=== PATIENT | female | born 1965 | race Caucasian/White ===

== ENCOUNTER 2020-05-10 20:09 | Emergency (ER) | payer MEDICAID ==
--- NOTE | 2020-05-10 21:39 | ER Document Report ---
ED Medical Screen (RME) - General Chief Complaint: Pelvic Pain Stated Complaint: PELVIC PAIN Time Seen by Provider: 05/10/20 21:31 Notes: 55-year-old female with chief complaint of left lower abdominal/pelvic pain for the past 1.5 weeks, worsening. She also reports some urinary hesitancy and some difficulty with bowel movements (constipation). She denies nausea, vomiting, fever/chills. She denies any abdominal surgeries except for tubal ligation. She states that she is having vaginal bleeding although she is not completely certain if this is bleeding with urination or vaginal bleeding. She also states that she is out of her blood pressure medication and has been unable to follow- up, she denies headache chest pain. Physical Exam - Vital signs Vitals: Temp Pulse Resp BP Pulse Ox 98.0 F 114 H 18 223/114 H 98 05/10/20 20:15 05/10/20 20:15 05/10/20 20:15 05/10/20 20:15 05/10/20 20:15 - Abdominal Tenderness: Tender - Tender in the suprapubic to left lower quadrant areas, exam limited by sitting position Course - Re-evaluation Re-evalutation: Patient seems tender in the suprapubic to left lower quadrant areas, difficulty reevaluate in triage. Discussed with patient, will perform straight catheter to evaluate if patient is having hematuria or vaginal bleeding since patient is unsure. I have greeted and performed a rapid initial assessment of this patient. A comprehensive ED assessment and evaluation of the patient, analysis of test results and completion of the medical decision making process will be conducted by additional ED providers. - Vital Signs Vital signs: Temp Pulse Resp BP Pulse Ox 98.0 F 114 H 18 223/114 H 98 05/10/20 20:15 05/10/20 20:15 05/10/20 20:15 05/10/20 20:15 05/10/20 20:15
--- NOTE | 2020-05-10 22:28 | RADIOLOGY REPORT (SQ) ---
EXAM DESCRIPTION: US PELVIS TRANSVAGINAL COMPLETED DATE/TME: 05/10/2020 21:39 CLINICAL HISTORY: 55 years, Female, pelvic pain (left side), vaginal bleeding COMPARISON: None. TECHNIQUE: LIMITATIONS: None. FINDINGS: The uterus measures 9.1 x 5.3 x 4.6 cm in overall size. There is a 3.2 cm fibroid in the lower uterine segment. The endometrial stripe measures 11 mm. The ovaries are unremarkable, and contain follicles bilaterally. Blood flow was demonstrated in both ovaries with Doppler. IMPRESSION: Lower uterine segment fibroid. copyright 2010 [employer]- All Rights Reserved
[2020-05-10 22:59] LABS: ABSOLUTE BASOPHILS # (AUTO) 0.2 10^3/uL (0.0-0.2); ABSOLUTE EOSINOPHILS # (AUTO) 0.3 10^3/uL (0.0-0.6); ABSOLUTE LYMPHOCYTES (AUTO) 3.3 10^3/uL (0.5-4.7); ABSOLUTE MONOCYTES (AUTO) 1.1 10^3/uL (0.1-1.4); ABSOLUTE NEUT (AUTO) 8.3 10^3/uL (1.7-8.2); BASOPHILS % (AUTO) 1.3 % (0-2); HEMATOCRIT 36.4 % (36.0-47.0); HEMOGLOBIN 11.7 g/dL (12.0-15.5); LYMPHOCYTES % (AUTO) 25.5 % (13-45); MEAN CORPUSCULAR HEMOGLOBIN 24.3 pg (27.0-33.4); MEAN CORPUSCULAR HGB CONC 32.1 g/dL (32.0-36.0); MEAN CORPUSCULAR VOLUME 76 fl (80-97); MONOCYTES % (AUTO) 8.2 % (3-13); PLATELET COUNT 476 10^3/uL (150-450); RED CELL DISTRIBUTION WIDTH 20.3 % (11.5-14.0); TOTAL CELLS COUNTED % (AUTO) 100 %; WHITE BLOOD COUNT 13.1 10^3/uL (4.0-10.5)
[2020-05-10 23:12] LABS: ALBUMIN 3.9 g/dL (3.5-5.0); ALKALINE PHOSPHATASE 87 U/L (38-126); ANION GAP 5 (5-19); ASPARTATE AMINO TRANSFERASE 17 U/L (14-36); BILIRUBIN,TOTAL 0.2 mg/dL (0.2-1.3); BLOOD UREA NITROGEN 13 mg/dL (7-20); CALCIUM 9.3 mg/dL (8.4-10.2); CARBON DIOXIDE 28 mmol/L (22-30); CHLORIDE 104 mmol/L (98-107); GLUCOSE 125 mg/dL (75-110); POTASSIUM 3.9 mmol/L (3.6-5.0); TOTAL PROTEIN 7.2 g/dL (6.3-8.2)
--- NOTE | 2020-05-11 01:09 | ER Document Report ---
ED General - General Chief Complaint: Lower Abdominal Pain Stated Complaint: PELVIC PAIN Time Seen by Provider: 05/10/20 21:31 Primary Care Provider: [facility] [Provider Group] - Follow up in 3-5 days BRAD CALL MD [COMMUNITY BASED STAFF] - Follow up in 3-5 days Notes: Patient is a 55-year-old female with chief complaint of left lower abdominal/pelvic pain for the past 1.5 weeks, worsening. She also reports some urinary hesitancy and some difficulty with bowel movements (constipation). She denies nausea, vomiting, fever/chills. She denies any abdominal surgeries except for tubal ligation. She states that she is having vaginal bleeding although she is not completely certain if this is bleeding with urination or vaginal bleeding. She denies vaginal discharge or sexual activity. She also states that she is out of her blood pressure medication and has been unable to follow-up, she denies headache chest pain. - Related Data Allergies/Adverse Reactions: No Known Allergies Allergy (Verified 05/10/20 21:44) Home Medications: mvi. low dose asa Past Medical History - General Information source: Patient - Social History Smoking Status: Current Every Day Smoker Frequency of alcohol use: Occasional Drug Abuse: None Lives with: Family Family History: Reviewed & Not Pertinent Patient has homicidal ideation: No - Past Medical History Cardiac Medical History: Reports: Hx Hypertension - Immunizations Hx Diphtheria, Pertussis, Tetanus Vaccination: Yes Review of Systems - Review of Systems Constitutional: No symptoms reported EENT: No symptoms reported Cardiovascular: No symptoms reported Respiratory: No symptoms reported Gastrointestinal: See HPI Genitourinary: See HPI Female Genitourinary: See HPI Musculoskeletal: No symptoms reported Skin: No symptoms reported Hematologic/Lymphatic: No symptoms reported Neurological/Psychological: No symptoms reported Physical Exam - Vital signs Vitals: Temp Pulse Resp BP Pulse Ox 98.0 F 114 H 18 223/114 H 98 05/10/20 20:15 05/10/20 20:15 05/10/20 20:15 05/10/20 20:15 05/10/20 20:15 - Notes Notes: GENERAL: Alert, interacts well. No acute distress. HEAD: Normocephalic, atraumatic. EYES: Pupils equal, round, and reactive to light. Extraocular movements intact. ENT: Oral mucosa moist, tongue midline. Oropharynx unremarkable. Airway patent. NECK: Full range of motion. Supple. Trachea midline. No lymphadenopathy. LUNGS: Clear to auscultation bilaterally, no wheezes, rales, or rhonchi. No respiratory distress. Non-tender chest wall. HEART: Regular rate and rhythm. No murmur ABDOMEN: Soft, non-tender. Non-distended. EXTREMITIES: Moves all 4 extremities spontaneously. No edema, normal radial and dorsalis pedis pulses bilaterally. No cyanosis. BACK: no cervical, thoracic, lumbar midline tenderness. No saddle anesthesia, normal distal neurovascular exam. Moves all extremities in full range of motion. NEUROLOGICAL: Alert and oriented x3. Normal speech. Cranial nerves II through XII grossly intact. Strength 5/5 in all extremities. PSYCH: Normal affect, normal mood. SKIN: Warm, dry, normal turgor. No rashes or lesions noted. Course - Re-evaluation Re-evalutation: Based on asking patient a variety of questions it seems that she is on lisinopril 20 mg and HCTZ 25 mg for her blood pressure but she is out of these. She states that the "water pill" makes her potassium go too low and she gets terrible cramps, she states she refuses to take this anymore. She does want to get back on the lisinopril 20 mg and she will have adjustments from there, she states she needs primary care referral, she is new to the area but she did just get insurance. Patient does not have chest pain, shortness of breath, or headache. On exam patient's abdomen is actually quite benign, there is no noted tenderness, there is no guarding. She does not have a fever. She has mild leukocytosis but this is nonspecific given her abdominal exam. Chemistry is unremarkable. Urinalysis does show infection. Transvaginal ultrasound does show uterine fibroid, I suspect this is the cause of patient's intermittent pain and vaginal bleeding. I discussed at length with patient. She will be treated for UTI, she will follow-up with [facility], I stressed the importance of this because of her vaginal bleeding after the age of 36 and the need for her to have the biopsy for any abnormal cells. Patient does state that she will follow-up, take medications, discussed return precautions, patient states understanding and agreement. Stable, smiling, well-appearing at time of discharge. - Vital Signs Vital signs: Temp Pulse Resp BP Pulse Ox 98.0 F 80 16 189/94 H 98 05/11/20 03:29 05/11/20 03:29 05/11/20 03:29 05/11/20 03:29 05/11/20 03:29 - Laboratory Result Diagrams: 05/10/20 22:40 05/10/20 22:40 Laboratory results interpreted by me: 05/10/20 05/10/20 05/11/20 22:40 22:40 00:10 WBC 13.1 H Hgb 11.7 L MCV 76 L MCH 24.3 L RDW 20.3 H Plt Count 476 H Absolute Neuts (auto) 8.3 H Est GFR (MDRD) Non-Af 51 L Glucose 125 H Urine Blood SMALL H Ur Leukocyte Esterase SMALL H Discharge - Discharge Clinical Impression: Lower abdominal pain, Vaginal bleeding, Uncontrolled hypertension Condition: Stable Disposition: HOME, SELF-CARE Additional Instructions: You have a fibroid in your uterus, this is most likely causing pain in the vaginal bleeding. This needs to be evaluated and treated by [facility]. It is very important that you perform this follow-up, because of the vaginal bleeding you may need a biopsy to rule out any abnormal cells which could develop into cancer with time. Call the listed referral tomorrow to set up a follow-up appointment. Your blood pressure is very elevated tonight. It is important that you start taking her blood pressure medication prescribed and that you follow-up with [facility] closely to have additional treatment for this. Call the listed referral for primary care as well. You have a urinary tract infection, take the antibiotic as prescribed to completion. Return if you worsen including vomiting, fever, severe headache, chest pain, very heavy bleeding, dizziness, passing out, or any other concerning symptoms. Prescriptions: Cephalexin Monohydrate [Keflex 500 mg Capsule] 500 mg PO BID 5 Days #10 capsule Lisinopril 20 mg PO DAILY #30 tablet Referrals: BRAD CALL MD [COMMUNITY BASED STAFF] - Follow up in 3-5 days [facility] [[facility] - Follow up in 3-5 days
[2020-05-11] MEDS ORDERED: LORAZEPAM 1 MG TABLET PO ONE (01:36)
[2020-05-11] MEDS ORDERED: LISINOPRIL 10 MG TABLET PO ONE (01:36)
[2020-05-11 01:52] LABS: APPEARANCE,URINE SLIGHTLY-CLOUDY; BILIRUBIN,URINE NEGATIVE (NEGATIVE); COLOR,URINE YELLOW; GLUCOSE, URINE NEGATIVE (NEGATIVE); KETONES,URINE NEGATIVE (NEGATIVE); LEUKOCYTE ESTERASE,URINE SMALL (NEGATIVE); NITRITE,URINE NEGATIVE (NEGATIVE); PROTEIN,URINE NEGATIVE (NEGATIVE); URINE SPECIFIC GRAVITY 1.012; UROBILINOGEN,URINE NEGATIVE mg/dL (<2.0)
[2020-05-11] MEDS ORDERED: CEPHALEXIN 500 MG CAPSULE PO ONE (02:18)
[2020-05-11 03:36] VITALS: BP 189/94
== END 2020-05-11 03:35 | disposition home or self-care (01) ==
LOC: ER 20:09
DX: N39.0 Urinary tract infection, site not specified (principal); D25.9 Leiomyoma of uterus, unspecified; K59.00 Constipation, unspecified; I10 Essential (primary) hypertension; R10.2 Pelvic and perineal pain; N93.9 Abnormal uterine and vaginal bleeding, unspecified; R39.11 Hesitancy of micturition; F17.200 Nicotine dependence, unspecified, uncomplicated; Z98.51 Tubal ligation status; Z79.899 Other long term (current) drug therapy; Z79.82 Long term (current) use of aspirin
CPT/HCPCS: 99284; 36415; 85025; 80053; 81001; 76830; 93976; J3490

== ENCOUNTER 2020-08-25 01:49 | Inpatient (IN) | payer MEDICAID ==
[2020-08-25 02:28] LABS: ABSOLUTE BASOPHILS # (AUTO) 0.1 10^3/uL (0.0-0.2); ABSOLUTE EOSINOPHILS # (AUTO) 0.3 10^3/uL (0.0-0.6); ABSOLUTE LYMPHOCYTES (AUTO) 2.3 10^3/uL (0.5-4.7); ABSOLUTE MONOCYTES (AUTO) 0.9 10^3/uL (0.1-1.4); ABSOLUTE NEUT (AUTO) 8.5 10^3/uL (1.7-8.2); BASOPHILS % (AUTO) 0.6 % (0-2); EOSINOPHILS % (AUTO) 2.6 % (0-6); HEMATOCRIT 37.3 % (36.0-47.0); HEMOGLOBIN 12.1 g/dL (12.0-15.5); LYMPHOCYTES % (AUTO) 19.1 % (13-45); MEAN CORPUSCULAR HEMOGLOBIN 24.8 pg (27.0-33.4); MEAN CORPUSCULAR HGB CONC 32.4 g/dL (32.0-36.0); MEAN CORPUSCULAR VOLUME 76 fl (80-97); MONOCYTES % (AUTO) 7.7 % (3-13); PLATELET COUNT 429 10^3/uL (150-450); RED BLOOD COUNT 4.89 10^6/uL (3.72-5.28); RED CELL DISTRIBUTION WIDTH 19.3 % (11.5-14.0); TOTAL CELLS COUNTED % (AUTO) 100 %; WHITE BLOOD COUNT 12.1 10^3/uL (4.0-10.5)
[2020-08-25 02:37] LABS: ALKALINE PHOSPHATASE 108 U/L (38-126); ANION GAP 8 (5-19); ASPARTATE AMINO TRANSFERASE 22 U/L (14-36); BILIRUBIN,DIRECT 0.3 mg/dL (0.0-0.4); BILIRUBIN,TOTAL 0.8 mg/dL (0.2-1.3); BLOOD UREA NITROGEN 13 mg/dL (7-20); CALCIUM 9.4 mg/dL (8.4-10.2); CARBON DIOXIDE 25 mmol/L (22-30); CHLORIDE 106 mmol/L (98-107); GLUCOSE 122 mg/dL (75-110); NEONATAL BILIRUBIN RESULT 0.5 mg/dL (0.1-1.1); TOTAL PROTEIN 7.3 g/dL (6.3-8.2)
--- NOTE | 2020-08-25 06:38 | RADIOLOGY REPORT (SQ) ---
EXAM DESCRIPTION: XR CHEST 1 VIEW COMPLETED DATE/TME: 08/25/2020 02:10 CLINICAL HISTORY: 55 years, Female, sob,cough COMPARISON: None. NUMBER OF VIEWS: 1 TECHNIQUE: Portable chest LIMITATIONS: None. FINDINGS: The heart size is normal. No pneumothorax. Interstitial opacities bilaterally consistent with pneumonitis IMPRESSION: Bilateral pneumonitis copyright 2011 [employer]- All Rights Reserved
[2020-08-25] MEDS ORDERED: LABETALOL HCL INJ 20 MG/4 ML DISP.SYRIN IV ONE (06:42)
[2020-08-25 07:10] LABS: TROPONIN I 0.04 ng/mL
[2020-08-25] MEDS ORDERED: FUROSEMIDE INJ/PF 40 MG/4 ML SDV IV ONE (07:24)
[2020-08-25] MEDS ORDERED: NITROGLYCERIN 2% OINTMENT 1 GM PACKET TP ONE (07:25)
[2020-08-25] MEDS ORDERED: MORPHINE SULFATE 10 MG/ML INJ IV ONE (07:25)
[2020-08-25] MEDS ORDERED: ONDANSETRON HCL INJ/PF 4 MG/2 ML SDV IV ONE (07:26)
--- NOTE | 2020-08-25 08:27 | EKG REPORT ---
SEVERITY:- ABNORMAL ECG - SINUS TACHYCARDIA LEFT BUNDLE BRANCH BLOCK : Confirmed by: Zack Joseph MD 25-Aug-2020 08:26:13
[2020-08-25] MEDS ORDERED: ASPIRIN 81 MG TABLET, CHEWABLE PO ONE (10:53)
--- NOTE | 2020-08-25 12:18 | EKG REPORT ---
SEVERITY:- ABNORMAL ECG - SINUS RHYTHM LEFT BUNDLE BRANCH BLOCK : Confirmed by: Zack Joseph MD 25-Aug-2020 12:17:03
--- NOTE | 2020-08-25 12:25 | ER Document Report ---
Entered by ALBERTO ESQUEDA SCRIBE 08/25/20 0619 Acting as scribe for:LEXI RAMOS MD ED Respiratory Problem - General Chief Complaint: Shortness Of Breath Stated Complaint: SHORTNESS OF BREATH,COUGHING Time Seen by Provider: 08/25/20 06:05 Mode of Arrival: Ambulatory Information source: Patient Notes: This 55 year old female patient with a history of hypertension presents to the ED today with complaints of shortness of breath for the past x1 week. Patient reports associated episodic chest tightness, mild nonproductive cough, and leg swelling. She states that her symptoms progressively worsened and that she can't lay down flat without becoming short of breath, so she decided to come to the ED for evaluation. Chest tightness is a 1/5 in severity at this time. She mentions that she ran out of her blood pressure medications x1 month ago and doesn't know the dose or name of the medication. Patient is a current every day smoker. She does not have a PCP. - Related Data Allergies/Adverse Reactions: No Known Allergies Allergy (Verified 05/10/20 21:44) Past Medical History - General Information source: Patient, [facility] Records - Social History Smoking Status: Current Every Day Smoker Chew tobacco use (# tins/day): No Smoking Education Provided: No Frequency of alcohol use: None Drug Abuse: None Family History: Reviewed & Not Pertinent, CAD, Hypertension Patient has suicidal ideation: No Patient has homicidal ideation: No - Past Medical History Cardiac Medical History: Reports: Hx Hypertension Psychiatric Medical History: Reports: Hx Anxiety, Hx Depression Past Surgical History: Reports: Hx Tubal Ligation - Immunizations Hx Diphtheria, Pertussis, Tetanus Vaccination: Yes Review of Systems - Review of Systems Constitutional: No symptoms reported EENT: No symptoms reported Cardiovascular: See HPI, Chest pain - tightness, Orthopnea Respiratory: See HPI, Cough, Short of breath. denies: Sputum Gastrointestinal: No symptoms reported Genitourinary: No symptoms reported Female Genitourinary: No symptoms reported Musculoskeletal: See HPI, Leg swelling Skin: No symptoms reported Hematologic/Lymphatic: No symptoms reported Neurological/Psychological: No symptoms reported -: Yes All other systems reviewed and negative Physical Exam - Vital signs Vitals: Temp Pulse Resp BP Pulse Ox 97.4 F 104 H 24 H 163/108 H 98 08/25/20 02:06 08/25/20 02:06 08/25/20 02:06 08/25/20 02:06 08/25/20 02:06 - General General appearance: Alert In distress: None - HEENT Head: Normocephalic, Atraumatic Eyes: Normal Pupils: PERRL Mouth/Lips: Other - Poor dentition - Respiratory Respiratory status: No respiratory distress Chest status: Nontender Breath sounds: Decreased air movement - Diminished breath sounds in the bases bilaterally Chest palpation: Normal - Cardiovascular Rhythm: Regular Heart sounds: Normal auscultation Murmur: No Friction rub: No Gallop: None auscultated - Abdominal Inspection: Normal Distension: No distension Bowel sounds: Normal Tenderness: Nontender Organomegaly: No organomegaly - Back Back: Normal, Nontender - Extremities General upper extremity: Normal inspection General lower extremity: Edema - +1 edema to bilateral lower extremities - Neurological Neuro grossly intact: Yes Orientation: AAOx4 Victoria Coma Scale Eye Opening: Spontaneous Abilio Coma Scale Verbal: Oriented Victoria Coma Scale Motor: Obeys Commands Victoria Coma Scale Total: 15 - Psychological Associated symptoms: Normal affect, Normal mood - Skin Skin Temperature: Warm Skin Moisture: Dry Skin Color: Normal Course - Re-evaluation Re-evalutation: 08/25/20 14:45 Patient resting comfortably states she feels better after diuresing. - Vital Signs Vital signs: Temp Pulse Resp BP Pulse Ox 98.5 F 104 H 16 137/88 H 98 08/25/20 10:30 08/25/20 02:06 08/25/20 10:30 08/25/20 10:30 08/25/20 10:30 08/25/20 14:45 mild sinus tachycardia at 104. - Laboratory Result Diagrams: 08/25/20 02:15 08/25/20 02:15 Laboratory results interpreted by me: 08/25/20 08/25/20 08/25/20 02:15 02:15 02:15 WBC 12.1 H MCV 76 L MCH 24.8 L RDW 19.3 H Absolute Neuts (auto) 8.5 H Glucose 122 H NT-Pro-B Natriuret Pep 2270 H 08/25/20 14:46 White blood cell count 12.1 BNP of 2270 glucose 122. - Diagnostic Test Radiology reviewed: Image reviewed, Reports reviewed Radiology results interpreted by me: 08/25/20 14:47 Chest X-Ray 08/25/20 02:10 IMPRESSION: Bilateral pneumonitis copyright 2011 [employer]- All Rights Reserved Chest x-ray read by radiologist shows bilateral pneumonitis. My evaluation of chest x-ray shows cardiomegaly and bibasilar infiltrates noted I was concerned for congestive heart failure. - EKG Interpretation by Me Additional EKG results interpreted by me: 08/25/20 14:58 Twelve-lead EKG shows a sinus tachycardia rate of 107 with a left bundle branch block. Hour interval within normal range QRS widening with a left bundle branch block QT interval prolonged. Left axis deviation. Left bundle branch block with reciprocal changes and ST elevations consistent with re-pole changes of left bundle branch block no acute STEMI noted. Patient has no prior EKG to alert us as to how long patient has had a left bundle branch block. - Consults Dr. Rivero, Home Health Rn Time consulted: 11:37 Reason for consultation: 08/25/20 11:39 New onset CHF, LBBB, Troponin leak Consulted provider: will see as inpatient Dr. Joseph, Home Health Rn-EKG Readings Time consulted: 12:00 Reason for consultation: 08/25/20 12:[address] Flores, Hospitalist Time consulted: 12:15 Dr. Estevez, Hospitalist Time consulted: 12:20 Reason for consultation: 08/25/20 12:22 Admission for new onset CHF Consulted provider: will see as inpatient Discharge - Discharge Clinical Impression: CHF (congestive heart failure), Accelerated essential hypertension, Left bundle branch block, Elevated troponin Condition: Fair Disposition: ADMITTED INPATIENT Admitting Provider: Herb (Hospitalist) Unit Admitted: IM I personally performed the services described in the documentation, reviewed and edited the documentation which was dictated to the scribe in my presence, and it accurately records my words and actions.
[2020-08-25] MEDS ORDERED: ACETAMINOPHEN 325 MG TABLET PO PRN (14:19)
[2020-08-25] MEDS ORDERED: OXYCODONE-ACETAMINOPHEN 5-325 MG TABLET PO PRN (14:19)
[2020-08-25] MEDS ORDERED: ZOLPIDEM TARTRATE 5 MG TABLET PO PRN (14:19)
[2020-08-25] MEDS ORDERED: IPRATROPIUM/ALBUTEROL 0.5-2.5 MG/3 ML AMPUL NEB PRN (14:19)
[2020-08-25] MEDS ORDERED: NITROGLYCERIN 0.4 MG/TAB 25 TAB/BOTTLE SL PRN (14:29)
--- NOTE | 2020-08-25 14:51 | PDOC H&P ---
History of Present Illness Admission Date/PCP: 08/25/20 12:51 Patient complains of: Patient presented to the emergency room with complaints of difficulty breathing and shortness of breath. She was found to have a blood pressure 177/109 on initial presentation. History of Present Illness: MICHELE GONZALEZ is a 55 year old female Patient presented to the emergency room with complaints of difficulty breathing and shortness of breath. She was found to have a blood pressure 177/109 on initial presentation. Patient admits to medical noncompliance. She says she dunn s been able to get her medications. She was not hypoxic although she was slightly intermittently tachypneic. Chest x-ray did show bilateral infiltrates and BNP slightly elevated at 2270. Patient's troponin was also found to be slightly elevated at 0.040 and 0.042. White count is 12.1 Chest x-ray is consistent with bilateral pneumonitis however patient is not hypoxic and she did improve with Lasix. I suspect her chest x-ray findings likely due to pulmonary congestion Past Medical History Cardiac Medical History: Reports: Hyperlipidema, Hypertension Psychiatric Medical History: Reports: Depression Past Surgical History Past Surgical History: Reports: Tubal Ligation Social History Information Source: Patient Smoking Status: Current Every Day Smoker Electronic Cigarette use?: No - Advance Directive Resuscitation Status: Full Code Family History Family History: Reviewed & Not Pertinent, CAD, Hypertension Parental Family History Reviewed: Yes Children Family History Reviewed: Yes Sibling(s) Family History Reviewed.: Yes Medication/Allergy Home Medications: Cephalexin Monohydrate [Keflex 500 mg Capsule] 500 mg PO BID 5 Days #10 capsule 05/11/20 Lisinopril 20 mg PO DAILY #30 tablet 05/11/20 Allergies/Adverse Reactions: No Known Allergies Allergy (Verified 05/10/20 21:44) Review of Systems Constitutional: ABSENT: chills, fever(s), headache(s), weight gain, weight loss Eyes: ABSENT: visual disturbances Ears: ABSENT: hearing changes Cardiovascular: PRESENT: chest pain, dyspnea on exertion. ABSENT: edema, orthropnea, palpitations Respiratory: ABSENT: cough, hemoptysis Gastrointestinal: ABSENT: abdominal pain, constipation, diarrhea, hematemesis, hematochezia, nausea, vomiting Genitourinary: ABSENT: dysuria, hematuria Musculoskeletal: ABSENT: joint swelling Integumentary: ABSENT: rash, wounds Neurological: ABSENT: abnormal gait, abnormal speech, confusion, dizziness, focal weakness, syncope Psychiatric: ABSENT: anxiety, depression, homidical ideation, suicidal ideation Endocrine: ABSENT: cold intolerance, heat intolerance, polydipsia, polyuria Hematologic/Lymphatic: ABSENT: easy bleeding, easy bruising Physical Exam Vital Signs: Temp Pulse Resp BP Pulse Ox 98.5 F 104 H 16 137/88 H 98 08/25/20 10:30 08/25/20 02:06 08/25/20 10:30 08/25/20 10:30 08/25/20 10:30 Intake & Output 08/24/20 08/25/20 08/26/20 06:59 06:59 06:59 Weight 93.7 kg General appearance: PRESENT: no acute distress, well-developed, well-nourished Head exam: PRESENT: atraumatic Eye exam: PRESENT: conjunctiva pink, EOMI, PERRLA. ABSENT: scleral icterus Ear exam: PRESENT: normal external ear exam Mouth exam: PRESENT: moist, tongue midline Teeth exam: PRESENT: poor dentation Neck exam: ABSENT: carotid bruit, JVD, lymphadenopathy, thyromegaly Respiratory exam: PRESENT: crackles. ABSENT: rales, rhonchi, wheezes Cardiovascular exam: PRESENT: RRR, +S1, +S2. ABSENT: diastolic murmur, rubs, systolic murmur Pulses: PRESENT: normal dorsalis pedis pul Vascular exam: PRESENT: normal capillary refill GI/Abdominal exam: PRESENT: normal bowel sounds, soft. ABSENT: distended, guarding, mass, organolmegaly, rebound, tenderness Rectal exam: PRESENT: deferred Extremities exam: PRESENT: full ROM, +1 edema. ABSENT: calf tenderness, clubbing, pedal edema Neurological exam: PRESENT: alert, awake, oriented to person, oriented to place, oriented to time, oriented to situation, CN II-XII grossly intact. ABSENT: motor sensory deficit Psychiatric exam: PRESENT: appropriate affect, normal mood. ABSENT: homicidal ideation, suicidal ideation Skin exam: PRESENT: dry, intact, warm. ABSENT: cyanosis, rash Results Laboratory Results: 08/25/20 02:15 08/25/20 02:15 08/25/20 08/25/20 02:15 02:15 WBC 12.1 H RBC 4.89 Hgb 12.1 Hct 37.3 MCV 76 L MCH 24.8 L MCHC 32.4 RDW 19.3 H Plt Count 429 Seg Neutrophils % 70.0 Sodium 138.9 Potassium 4.0 Chloride 106 Carbon Dioxide 25 Anion Gap 8 BUN 13 Creatinine 0.93 Est GFR ( Amer) > 60 Glucose 122 H Calcium 9.4 Total Bilirubin 0.8 AST 22 Alkaline Phosphatase 108 Total Protein 7.3 Albumin 4.0 08/25/20 08/25/20 02:15 10:03 Troponin I 0.040 0.042 NT-Pro-B Natriuret Pep 2270 H EKG Comments: EKG shows a left bundle branch block. Unfortunately there is no prior old EKG for comparison Impressions: Chest X-Ray 08/25/20 02:10 IMPRESSION: Bilateral pneumonitis copyright 2011 [employer]- All Rights Reserved Assessment and Plan - Diagnosis (1) Hypertensive emergency Is this a current diagnosis for this admission?: Yes Plan: Treated with Labetalol and Lasix and Nitropaste in ED and her blood pressure rapidly improved. Patient's breathing also improved suggesting that she probab ly has pulmonary vascular congestion from hypertensive emergency She will be placed on Metoprolol. It appears she was on lisinopril as outpatient. (2) Elevated troponin I level Is this a current diagnosis for this admission?: Yes Plan: This is likely troponin leak secondary to her hypertensive emergency and pulmonary vascular congestion. Her level is flat at 0.4. A repeat troponin will be obtained. Echocardiogram will be scheduled. She does have a left bundle branch block and it is unknown if this is old although I suspect so. Should be monitored on telemetry. We will repeat an EKG in a.m. and further consultations will be obtained as clinically indicated (3) Bilateral pulmonary infiltrates on chest x-ray Is this a current diagnosis for this admission?: Yes Plan: Bilateral infiltrates on chest x-ray likely secondary related to pulmonary vascular congestion. Patient does not seem to have risk factors or symptomatology strongly suggestive of COVID however a COVID test will be obtained to rule out COVID and patient will be placed on appropriate isolation protocols. I will put Zithromax. At this point I see no need for any steroids or other cocktails for COVID as she is not hypoxic. Continue to monitor and adjust treatment as needed (4) CHF (congestive heart failure) Qualifiers: Heart failure chronicity: unspecified Is this a current diagnosis for this admission?: Yes Plan: This is a suspected diagnosis. Patient gives no prior history of CHF. Will obtain echocardiogram. (5) Left bundle branch block Is this a current diagnosis for this admission?: Yes Plan: Unknown if this is old or new. Will obtain follow-up EKG in a.m. with appropriate follow-up consultations as indicated - Time Time Spent with patient: 25-34 minutes Smoking Cessation Education: 3 to 10 minutes Medications reviewed and adjusted accordingly: Yes Anticipated Discharge Disposition: Home, Self Care Anticipated Discharge Timeframe: within 48 hours
[2020-08-25] MEDS: AZITHROMYCIN 500 MG in DEXTROSE 5%-WATER 250 ML IV SCH (16:30)
[2020-08-25] MEDS: ONDANSETRON HCL INJ/PF 4 MG/2 ML SDV IV PRN (17:49)
[2020-08-25] MEDS: FUROSEMIDE INJ/PF 40 MG/4 ML SDV IV SCH (21:30)
[2020-08-25] MEDS: METOPROLOL SUCCINATE 25 MG TAB.SR.24H PO SCH (21:30)
[2020-08-26] MEDS: PANTOPRAZOLE SODIUM 40 MG TABLET.DR PO SCH (05:41)
[2020-08-26 06:09] LABS: ABSOLUTE BASOPHILS # (AUTO) 0.1 10^3/uL (0.0-0.2); ABSOLUTE EOSINOPHILS # (AUTO) 0.3 10^3/uL (0.0-0.6); ABSOLUTE LYMPHOCYTES (AUTO) 1.9 10^3/uL (0.5-4.7); ABSOLUTE MONOCYTES (AUTO) 0.7 10^3/uL (0.1-1.4); ABSOLUTE NEUT (AUTO) 7.1 10^3/uL (1.7-8.2); BASOPHILS % (AUTO) 1.3 % (0-2); EOSINOPHILS % (AUTO) 2.8 % (0-6); HEMATOCRIT 35.2 % (36.0-47.0); HEMOGLOBIN 11.2 g/dL (12.0-15.5); MEAN CORPUSCULAR HEMOGLOBIN 24.5 pg (27.0-33.4); MEAN CORPUSCULAR HGB CONC 31.7 g/dL (32.0-36.0); MEAN CORPUSCULAR VOLUME 77 fl (80-97); MONOCYTES % (AUTO) 7.3 % (3-13); PLATELET COUNT 364 10^3/uL (150-450); RED BLOOD COUNT 4.57 10^6/uL (3.72-5.28); RED CELL DISTRIBUTION WIDTH 19.4 % (11.5-14.0); SEGMENTED NEUTROPHILS % (AUTO) 69.6 % (42-78); TOTAL CELLS COUNTED % (AUTO) 100 %; WHITE BLOOD COUNT 10.2 10^3/uL (4.0-10.5)
[2020-08-26 06:26] LABS: ANION GAP 7 (5-19); BLOOD UREA NITROGEN 14 mg/dL (7-20); CALCIUM 8.5 mg/dL (8.4-10.2); CARBON DIOXIDE 25 mmol/L (22-30); CHLORIDE 107 mmol/L (98-107); GLUCOSE 99 mg/dL (75-110)
--- NOTE | 2020-08-26 08:48 | EKG REPORT ---
SEVERITY:- ABNORMAL ECG - SINUS RHYTHM LEFT BUNDLE BRANCH BLOCK : Confirmed by: Zack Joseph MD 26-Aug-2020 08:47:23
[2020-08-26] MEDS: ASPIRIN 81 MG TABLET, CHEWABLE PO SCH (09:04)
[2020-08-26] MEDS: METOPROLOL SUCCINATE 25 MG TAB.SR.24H PO SCH ×2 (09:04→21:56)
[2020-08-26] MEDS: DOCUSATE SODIUM 100 MG CAPSULE PO SCH (09:04)
[2020-08-26] MEDS: ENOXAPARIN SODIUM INJ 40 MG/0.4 ML DISP.SYRIN SUBCUT SCH (09:04)
[2020-08-26] MEDS: FUROSEMIDE INJ/PF 40 MG/4 ML SDV IV SCH ×2 (09:04→21:56)
[2020-08-26] MEDS: AZITHROMYCIN 500 MG in DEXTROSE 5%-WATER 250 ML IV SCH (09:05)
--- NOTE | 2020-08-26 12:27 | PDOC PROGRESS REPORT ---
Subjective Progress Note for:: 08/26/20 Reason For Visit: HYPERTENSIVE URGENCY, R/O COVID,ELEVATED TROPONIN Physical Exam Vital Signs: Temp Pulse Resp BP Pulse Ox 98.1 F 86 16 130/73 H 98 08/26/20 07:52 08/26/20 07:25 08/26/20 07:25 08/26/20 07:25 08/26/20 07:25 Intake & Output 08/25/20 08/26/20 08/27/20 06:59 06:59 06:59 Intake Total 1700 250 Output Total 1400 Balance 300 250 Weight 93.7 kg 94.6 kg General appearance: PRESENT: no acute distress Head exam: PRESENT: atraumatic, normocephalic Eye exam: PRESENT: conjunctiva pink, EOMI, PERRLA. ABSENT: scleral icterus Ear exam: PRESENT: normal external ear exam Mouth exam: PRESENT: moist, tongue midline Teeth exam: PRESENT: poor dentation Neck exam: ABSENT: carotid bruit, JVD, lymphadenopathy, thyromegaly Respiratory exam: PRESENT: decreased breath sounds, rhonchi - few. ABSENT: rales, wheezes Cardiovascular exam: PRESENT: RRR, +S1, +S2. ABSENT: diastolic murmur, rubs, systolic murmur Pulses: PRESENT: normal dorsalis pedis pul Vascular exam: PRESENT: normal capillary refill GI/Abdominal exam: PRESENT: normal bowel sounds, soft. ABSENT: distended, guarding, mass, organolmegaly, rebound, tenderness Rectal exam: PRESENT: deferred Extremities exam: PRESENT: full ROM. ABSENT: calf tenderness, clubbing, pedal edema Neurological exam: PRESENT: alert, awake, oriented to person, oriented to place, oriented to time. ABSENT: motor sensory deficit Psychiatric exam: PRESENT: appropriate affect, normal mood. ABSENT: homicidal ideation, suicidal ideation Skin exam: PRESENT: dry, intact, warm. ABSENT: cyanosis, rash Results Laboratory Results: 08/26/20 05:50 08/26/20 05:50 08/26/20 08/26/20 05:50 05:50 WBC 10.2 RBC 4.57 Hgb 11.2 L Hct 35.2 L MCV 77 L MCH 24.5 L MCHC 31.7 L RDW 19.4 H Plt Count 364 Seg Neutrophils % 69.6 Sodium 139.0 Potassium 4.0 Chloride 107 Carbon Dioxide 25 Anion Gap 7 BUN 14 Creatinine 1.01 Est GFR ( Amer) > 60 Glucose 99 Calcium 8.5 08/25/20 08/25/20 08/25/20 02:15 10: 16:54 Troponin I 0.040 0.042 0.040 NT-Pro-B Natriuret Pep 2270 H Impressions: Chest X-Ray 08/25/20 02:10 IMPRESSION: Bilateral pneumonitis copyright 2011 [employer]- All Rights Reserved Assessment and Plan - Diagnosis (1) Hypertensive emergency Is this a current diagnosis for this admission?: Yes Plan: Treated with Labetalol and Lasix and Nitropaste in ED and her blood pressure rapidly improved. Patient's breathing also improved suggesting that she probably has pulmonary vascular congestion from hypertensive emergency She will be placed on Metoprolol. It appears she was on lisinopril as outpatient. 08/26 BP is improved. Will continue with current regimen (2) Elevated troponin I level Is this a current diagnosis for this admission?: Yes Plan: This is likely troponin leak secondary to her hypertensive emergency and pulmonary vascular congestion. Her level is flat at 0.4. A repeat troponin will be obtained. Echocardiogram will be scheduled. She does have a left bundle branch block and it is unknown if this is old although I suspect so. Should be monitored on telemetry. We will repeat an EKG in a.m. and further consultations will be obtained as clinically indicated 08/26 20 remains flat. Patient is chest pain-free. Troponin leak was likely secondary to her poorly controlled blood pressure. Echocardiogram is pending. EKG continues to show a left bundle branch block which is probably old. Will follow-up on echo and consider cardiology consultation subsequently (3) Bilateral pulmonary infiltrates on chest x-ray Is this a current diagnosis for this admission?: Yes Plan: Bilateral infiltrates on chest x-ray likely secondary related to pulmonary vascular congestion. Patient does not seem to have risk factors or symptomatology strongly suggestive of COVID however a COVID test will be obtained to rule out COVID and patient will be placed on appropriate isolation protocols. I will put Zithromax. At this point I see no need for any steroids or other cocktails for COVID as she is not hypoxic. Continue to monitor and adjust treatment as needed 08/26 COVID test is still pending although patient clinically does not appear to have COVID pneumonitis. Continue with the Zithromax. She remains stable with adequate oxygen saturation (4) CHF (congestive heart failure) Qualifiers: Heart failure chronicity: unspecified Is this a current diagnosis for this admission?: Yes Plan: This is a suspected diagnosis. Patient gives no prior history of CHF. Will obtain echocardiogram. 08/26 Follow-up on echocardiogram for full details (5) Left bundle branch block Is this a current diagnosis for this admission?: Yes Plan: Unknown if this is old or new. Will obtain follow-up EKG in a.m. with appropriate follow-up consultations as indicated 08/26 F/u on echo - Time Time Spent with patient: 15-24 minutes Anticipated Discharge Disposition: Home, Self Care Anticipated Discharge Timeframe: within 48 hours
[2020-08-26] MEDS: ONDANSETRON HCL INJ/PF 4 MG/2 ML SDV IV PRN (22:18)
[2020-08-27] MEDS: PANTOPRAZOLE SODIUM 40 MG TABLET.DR PO SCH (05:18)
[2020-08-27 06:39] LABS: ABSOLUTE BASOPHILS # (AUTO) 0.1 10^3/uL (0.0-0.2); ABSOLUTE EOSINOPHILS # (AUTO) 0.2 10^3/uL (0.0-0.6); ABSOLUTE LYMPHOCYTES (AUTO) 1.8 10^3/uL (0.5-4.7); ABSOLUTE MONOCYTES (AUTO) 0.8 10^3/uL (0.1-1.4); ABSOLUTE NEUT (AUTO) 7.5 10^3/uL (1.7-8.2); BASOPHILS % (AUTO) 1.2 % (0-2); EOSINOPHILS % (AUTO) 2.2 % (0-6); HEMATOCRIT 34.1 % (36.0-47.0); HEMOGLOBIN 11.1 g/dL (12.0-15.5); MEAN CORPUSCULAR HEMOGLOBIN 24.7 pg (27.0-33.4); MEAN CORPUSCULAR HGB CONC 32.6 g/dL (32.0-36.0); MEAN CORPUSCULAR VOLUME 76 fl (80-97); MONOCYTES % (AUTO) 7.5 % (3-13); PLATELET COUNT 367 10^3/uL (150-450); RED BLOOD COUNT 4.51 10^6/uL (3.72-5.28); RED CELL DISTRIBUTION WIDTH 19.4 % (11.5-14.0); SEGMENTED NEUTROPHILS % (AUTO) 72.1 % (42-78); TOTAL CELLS COUNTED % (AUTO) 100 %; WHITE BLOOD COUNT 10.5 10^3/uL (4.0-10.5)
[2020-08-27] MEDS: FUROSEMIDE INJ/PF 40 MG/4 ML SDV IV SCH (09:39)
[2020-08-27] MEDS: AZITHROMYCIN 500 MG in DEXTROSE 5%-WATER 250 ML IV SCH (09:39)
[2020-08-27] MEDS: METOPROLOL SUCCINATE 25 MG TAB.SR.24H PO SCH ×2 (09:40→21:11)
[2020-08-27] MEDS: ENOXAPARIN SODIUM INJ 40 MG/0.4 ML DISP.SYRIN SUBCUT SCH (09:40)
[2020-08-27] MEDS: ASPIRIN 81 MG TABLET, CHEWABLE PO SCH (09:40)
[2020-08-27] MEDS: DOCUSATE SODIUM 100 MG CAPSULE PO SCH (10:02)
--- NOTE | 2020-08-27 17:13 | PDOC PROGRESS REPORT ---
Subjective Progress Note for:: 08/27/20 Subjective:: Patient continues to improve. She denies any headaches nausea vomiting. Her breathing has improved. COVID 19 is negative. Her blood pressures slightly elevated but much better controlled Reason For Visit: HYPERTENSIVE URGENCY, R/O COVID,ELEVATED TROPONIN Physical Exam Vital Signs: Temp Pulse Resp BP Pulse Ox 97.8 F 83 16 135/94 H 96 08/27/20 10:00 08/27/20 14:00 08/27/20 08:47 08/27/20 08:16 08/27/20 08:47 Intake & Output 08/26/20 08/27/20 08/28/20 06:59 06:59 06:59 Intake Total 1700 2392 Output Total 1400 2300 Balance 300 92 Weight 94.6 kg 93.5 kg General appearance: PRESENT: no acute distress, obese Head exam: PRESENT: atraumatic Eye exam: PRESENT: conjunctiva pink, PERRLA. ABSENT: scleral icterus Ear exam: PRESENT: normal external ear exam Mouth exam: PRESENT: moist, tongue midline Teeth exam: PRESENT: poor dentation Neck exam: ABSENT: carotid bruit, JVD, lymphadenopathy, thyromegaly Respiratory exam: PRESENT: clear to auscultation mati, unlabored. ABSENT: rales, rhonchi, wheezes Cardiovascular exam: PRESENT: RRR, +S1, +S2. ABSENT: diastolic murmur, rubs, systolic murmur Pulses: PRESENT: normal dorsalis pedis pul Vascular exam: PRESENT: normal capillary refill GI/Abdominal exam: PRESENT: normal bowel sounds, soft. ABSENT: distended, guarding, mass, organolmegaly, rebound, tenderness Rectal exam: PRESENT: deferred Extremities exam: PRESENT: full ROM, +2 edema. ABSENT: calf tenderness, clubbing, pedal edema Neurological exam: PRESENT: alert, awake, oriented to person, oriented to place, oriented to time, oriented to situation, CN II-XII grossly intact. ABSENT: motor sensory deficit Psychiatric exam: PRESENT: appropriate affect, normal mood. ABSENT: homicidal ideation, suicidal ideation Skin exam: PRESENT: dry, intact, warm. ABSENT: cyanosis, rash Results Laboratory Results: 08/27/20 06:23 08/26/20 05:50 08/27/20 06:23 WBC 10.5 RBC 4.51 Hgb 11.1 L Hct 34.1 L MCV 76 L MCH 24.7 L MCHC 32.6 RDW 19.4 H Plt Count 367 Seg Neutrophils % 72.1 08/25/20 08/25/20 08/25/20 02:15 10: 16:54 Troponin I 0.040 0.042 0.040 NT-Pro-B Natriuret Pep 2270 H Impressions: Chest X-Ray 08/25/20 02:10 IMPRESSION: Bilateral pneumonitis copyright 2011 [employer]- All Rights Reserved Assessment and Plan - Diagnosis (1) Hypertensive emergency Is this a current diagnosis for this admission?: Yes Plan: Treated with Labetalol and Lasix and Nitropaste in ED and her blood pressure rapidly improved. Patient's breathing also improved suggesting that she probably has pulmonary vascular congestion from hypertensive emergency She will be placed on Metoprolol. It appears she was on lisinopril as outpatient. 08/26 BP is improved. Will continue with current regimen 08/27 blood pressure is better controlled however I will add lisinopril back to her regimen and continue with metoprolol. Further adjustments can be done depending on her echo results (2) Elevated troponin I level Is this a current diagnosis for this admission?: Yes Plan: This is likely troponin leak secondary to her hypertensive emergency and pulmonary vascular congestion. Her level is flat at 0.4. A repeat troponin will be obtained. Echocardiogram will be scheduled. She does have a left bundle branch block and it is unknown if this is old although I suspect so. Should be monitored on telemetry. We will repeat an EKG in a.m. and further consultations will be obtained as clinically indicated 08/26 20 remains flat. Patient is chest pain-free. Troponin leak was likely secondary to her poorly controlled blood pressure. Echocardiogram is pending. EKG continues to show a left bundle branch block which is probably old. Will follow-up on echo and consider cardiology consultation subsequently Mildred secondary to hypertensive emergency. Patient was chest pain-free and there was no acute EKG changes. Follow-up on echocardiogram and further consultations if needed or she can follow-up with outpatient cardiology if needed (3) Bilateral pulmonary infiltrates on chest x-ray Is this a current diagnosis for this admission?: Yes Plan: COVID-19 has been ruled out. Patient is on Zithromax currently (4) CHF (congestive heart failure) Qualifiers: Heart failure chronicity: unspecified Is this a current diagnosis for this admission?: Yes Plan: Presumed, no prior history of CHF. Echocardiogram is currently pending (5) Left bundle branch block Is this a current diagnosis for this admission?: Yes Plan: Unknown if this is old or new. Will obtain follow-up EKG in a.m. with appropriate follow-up consultations as indicated 08/26 F/u on echo 08/27 Cardiology follow up as needed - Time Time Spent with patient: 15-24 minutes Anticipated Discharge Disposition: Home, Self Care Anticipated Discharge Timeframe: within 48 hours
[2020-08-28] MEDS: PANTOPRAZOLE SODIUM 40 MG TABLET.DR PO SCH (05:30)
[2020-08-28 06:57] LABS: ABSOLUTE BASOPHILS # (AUTO) 0.1 10^3/uL (0.0-0.2); ABSOLUTE EOSINOPHILS # (AUTO) 0.2 10^3/uL (0.0-0.6); ABSOLUTE MONOCYTES (AUTO) 0.8 10^3/uL (0.1-1.4); ABSOLUTE NEUT (AUTO) 6.8 10^3/uL (1.7-8.2); BASOPHILS % (AUTO) 1.1 % (0-2); EOSINOPHILS % (AUTO) 2.4 % (0-6); HEMATOCRIT 35.2 % (36.0-47.0); HEMOGLOBIN 11.5 g/dL (12.0-15.5); LYMPHOCYTES % (AUTO) 20.3 % (13-45); MEAN CORPUSCULAR HEMOGLOBIN 24.7 pg (27.0-33.4); MEAN CORPUSCULAR HGB CONC 32.7 g/dL (32.0-36.0); MEAN CORPUSCULAR VOLUME 76 fl (80-97); MONOCYTES % (AUTO) 7.8 % (3-13); PLATELET COUNT 377 10^3/uL (150-450); RED BLOOD COUNT 4.64 10^6/uL (3.72-5.28); SEGMENTED NEUTROPHILS % (AUTO) 68.4 % (42-78); TOTAL CELLS COUNTED % (AUTO) 100 %
[2020-08-28] MEDS: DOCUSATE SODIUM 100 MG CAPSULE PO SCH (09:40)
[2020-08-28] MEDS: ENOXAPARIN SODIUM INJ 40 MG/0.4 ML DISP.SYRIN SUBCUT SCH (09:40)
[2020-08-28] MEDS: METOPROLOL SUCCINATE 25 MG TAB.SR.24H PO SCH (09:40)
[2020-08-28] MEDS: ASPIRIN 81 MG TABLET, CHEWABLE PO SCH (09:40)
[2020-08-28] MEDS ORDERED: FUROSEMIDE INJ/PF 40 MG/4 ML SDV IV SCH (10:00)
[2020-08-28] MEDS ORDERED: AZITHROMYCIN 250 MG TABLET PO SCH (10:00)
[2020-08-28] MEDS ORDERED: LISINOPRIL 10 MG TABLET PO SCH ×2 (10:00)
--- NOTE | 2020-08-28 12:16 | XCELERA REPORT ---
[address] [address] Transthoracic Echocardiogram Report Name: MICHELE GONZALEZ Age: 55 yrs Gender: Female : 1965 Patient Status: Inpatient Patient Location: [facility]^A Study Date: 08/27/2020 10:28 AM Height: 64 in Weight: 206 lb BSA: 2.0 m2 Reason For Study: Pulmonary edema Ordering Physician: ML MANDUJANO Performed By: Janice Young Interpretation Summary FINDINGS: LEFT VENTRICLE: LV Systolic function: LVEF felt to be moderately depressed at approximately 35% LV Diastolic Function: Grade III diastolic dysfunction noted. Wall motion : regional wall motion cannot be accurately commented upon. Cannot rule out distal anterior septum and distal anterior wall hypokinesia. Left ventricular chamber size : is within normal limit. Left ventricular wall thickness : is increased indicative of Mild LVH. INTERVENTRICULAR SEPTUM: no evidence of VSD noted. No asymmetric hypertrophy noted. RIGHT VENTRICLE: RV systolic function : is felt to be within normal limit. Right Ventricle Size : is within normal limits. LEFT ATRIUM size : mildly dilated. RIGHT ATRIUM size : is within normal limit. INTER ATRIAL SEPTUM : No definite atrial septal defect noted however a small PFO could be missed. AORTIC ROOT : seems to be within normal limits. Ascending aorta is not well visualized. INFERIOR VENA CAVA: was not well visualized. VALVES: MITRAL VALVE : Leaflets are mildly thickened. Mobility seems to be within normal limits. Mitral Regurgitation : Mild mitral regurgitation is noted. Mitral Stenosis: No mitral stenosis noted. Mitral valve prolapse : none noted. AORTIC VALVE: seems to be trileaflet with thickening but adequate excursion. Aortic stenosis : No aortic stenosis noted. Aortic regurgitation : No aortic incompetence noted. TRICUSPID VALVE : mobility and structures within normal limit. Tricuspid stenosis : no tricuspid stenosis noted. Tricuspid regurgitation : Trace tricuspid regurgitation noted. Estimated RVSP : tricuspid jet envelope not well defined to measure RV systolic pressure accurately. PULMONARY VALVE : was not well visualized but no significant abnormalities suspected. Pulmonary stenosis : no significant pulmonary stenosis noted. Pulmonary regurgitation : no significant pulmonary regurgitation noted. MASSES AND THROMBUS : No definite intracardiac thrombus or masses are noted. PERICARDIUM: minimal pericardial effusion was noted. IMPRESSION : 1. Moderately depressed LVEF estimated at approximately 35%. 2. Mild LVH noted. 3. Grade III Diastolic Dysfunction noted. 4. Mild mitral regurgitation noted. MMode/2D Measurements & Calculations RVDd: 2.5 cm LVIDd: 4.9 cm FS: 13.4 % Ao root diam: 2.6 cm IVSd: 1.4 cm LVIDs: 4.2 cm EDV(Teich): 111.6 ml LVPWd: 1.4 cm ESV(Teich): 79.6 ml Ao root area: 5.2 cm2 EF(Teich): 28.6 % Doppler Measurements & Calculations MV E max jensen: MV dec slope: Ao V2 max: LV V1 max P.9 cm/sec 974.4 cm/sec2 114.2 cm/sec 2.8 mmHg MV A max jensen: MV dec time: Ao max P.2 mmHgLV V1 max: 76.7 cm/sec 0.12 sec 83.2 cm/sec MV E/A: 1.5 MR max jensen: PA V2 max: PI end-d jensen: TR max jensen: 415.5 cm/sec 80.0 cm/sec 97.2 cm/sec 239.7 cm/sec MR max PG: PA max P.6 mmHg TR max P.0 mmHg 23.0 mmHg : ML MANDUJANO Shyamal
--- NOTE | 2020-08-28 13:24 | PDOC PROGRESS REPORT ---
Subjective Progress Note for:: 08/28/20 Subjective:: Patient denies any shortness of breath or chest pain. Patient did admits to not using her high blood pressure medications for over a month. She states she uses them off and on and has difficulty with refilling prescriptions because she thought she did not have insurance and did not want to pay to see her primary care doctor Reason For Visit: HYPERTENSIVE URGENCY, R/O COVID,ELEVATED TROPONIN Physical Exam Vital Signs: Temp Pulse Resp BP Pulse Ox 97.7 F 81 18 136/72 H 98 08/28/20 12:14 08/28/20 12:14 08/28/20 12:14 08/28/20 12:14 08/28/20 12:14 Intake & Output 08/27/20 08/28/20 08/29/20 06:59 06:59 06:59 Intake Total 2392 996 Output Total 2300 1000 Balance 92 -4 Weight 93.5 kg 90.7 kg General appearance: PRESENT: no acute distress, cooperative Neck exam: ABSENT: JVD Respiratory exam: PRESENT: symmetrical, unlabored. ABSENT: tachypnea, wheezes Cardiovascular exam: PRESENT: RRR, +S1, +S2. ABSENT: tachycardia GI/Abdominal exam: PRESENT: soft. ABSENT: ascites, firm, rebound, rigid, tender ness Neurological exam: PRESENT: alert, awake, oriented to person, oriented to place, oriented to time Results Laboratory Results: 08/28/20 06:33 08/26/20 05:50 08/28/20 06:33 WBC 10.0 RBC 4.64 Hgb 11.5 L Hct 35.2 L MCV 76 L MCH 24.7 L MCHC 32.7 RDW 19.0 H Plt Count 377 Seg Neutrophils % 68.4 08/25/20 08/25/20 08/25/20 02:15 10:03 16:54 Troponin I 0.040 0.042 0.040 NT-Pro-B Natriuret Pep 2270 H Impressions: Chest X-Ray 08/25/20 02:10 IMPRESSION: Bilateral pneumonitis copyright 2011 [employer]- All Rights Reserved Assessment and Plan - Diagnosis (1) CHF (congestive heart failure) Qualifiers: Heart failure type: combined systolic and diastolic Heart failure chronicity: acute on chronic Qualified Code(s): I50.43 - Acute on chronic combined systolic (congestive) and diastolic (congestive) heart failure Is this a current diagnosis for this admission?: Yes Plan: Currently patient is hemodynamically stable and close to euvolemia at this point. However echocardiogram comes back showing grade 3 diastolic dysfunction but with an EF of 35%. I have consulted Dr. Clancy to see patient in ischemic evaluation prior to discharge. Toprol XL, lisinopril, switch Lasix from IV to p.o. (2) Hypertensive emergency Is this a current diagnosis for this admission?: Yes Plan: BP is better controlled at this point. (3) Left bundle branch block Is this a current diagnosis for this admission?: Yes (4) Elevated troponin I level Is this a current diagnosis for this admission?: Yes - Time Time Spent with patient: Less than 15 minutes Anticipated Discharge Disposition: Home, Self Care Anticipated Discharge Timeframe: within 24 hours
--- NOTE | 2020-08-28 16:02 | PDOC CONSULTATION ---
Consultation Consult Date: 08/28/20 Attending physician:: KENDALL FRANCES Provider Consulted: BAMBI FLORES Consult reason:: [id number] History of Present Illness Admission Date/PCP: 08/25/20 12:51 History of Present Illness: MICHELE GONZALEZ is a 55 year old female with history of hypertension, smoker of 1.5 pack/days for more than 30 years and with family history of coronary artery disease in her father who is consulted to our service for evaluation of heart failure. The patient was admitted to our facility approximately 3 days ago when she presented to the emergency room complaining of shortness of breath, progressive lower extremity edema up to her knees, orthopnea and PND. In the emergency room she was found to have an elevated blood pressure and the patient admitted to be noncompliant with her antihypertensives. She was admitted and placed on appropriate medical therapy however she continues to complain of dyspnea even when seated at a 45 degree angle in bed. Physical exam on 08/28/2020: GENERAL: Pleasant and conversational in short sentences. Mildly short of breath. Oriented x3 with normal mood. Not in acute distress. Well groomed and well developed. HEENT: Normocephalic, atraumatic. Pupils equal. Sclerae anicteric. Oropharynx moist. NECK: No JVD. No carotid bruits. LUNGS: Clear to auscultation bilaterally. Normal respiratory effort without the use of accessory muscles or intercostal retractions. CARDIOVASCULAR: Regular rate and rhythm, normal S1 and S2 without murmurs, rubs, or gallops. PMI not displaced. ABDOMEN: No masses or tenderness to palpation. No bruit. No splenomegaly or hepatomegaly. No abdominal aorta bruit noted. EXTREMITIES: 1-2+ pitting edema bilaterally, no cyanosis, no clubbing. +2 pulses femoral and pedal pulses bilaterally. SKIN: No lesions or rashes. MUSCULOSKELETAL: No chest tenderness to palpation. NEUROLOGIC: Nonfocal. No gross sensory or motor deficits bilateral upper or lower extremities. Cardiac studies: Echocardiogram on 08/27/2020: -EF 35%. -Grade 3 diastolic dysfunction. -Cannot comment on wall motion abnormalities. -Mild concentric LVH. -Mild MR. Past Medical History Cardiac Medical History: Reports: Hyperlipidema, Hypertension Psychiatric Medical History: Reports: Depression Past Surgical History Past Surgical History: Reports: Tubal Ligation Social History Smoking Status: Current Every Day Smoker Cigarettes Packs Per Day: 1 Electronic Cigarette use?: No Number of Years Smokin Last Time Smoked: 08/24/2020 at 7pm Frequency of Alcohol Use: Rare Hx Recreational Drug Use: Yes Drugs: Other Hx Prescription Drug Abuse: No - Advance Directive Resuscitation Status: Full Code Family History Family History: Reviewed & Not Pertinent, CAD, Hypertension Parental Family History Reviewed: Yes Children Family History Reviewed: Yes Sibling(s) Family History Reviewed.: Yes Medication/Allergy Home Medications: No Home Medications 08/26/20 Allergies/Adverse Reactions: No Known Allergies Allergy (Verified 05/10/20 21:44) Physical Exam Vital Signs: Temp Pulse Resp BP Pulse Ox 97.7 F 84 18 136/72 H 98 08/28/20 12:14 08/28/20 14:00 08/28/20 12:14 08/28/20 12:14 08/28/20 12:14 Intake & Output 08/27/20 08/28/20 08/29/20 06:59 06:59 06:59 Intake Total 2392 996 835 Output Total 2300 1000 Balance 92 -4 835 Weight 93.5 kg 90.7 kg Results Laboratory Results: 08/28/20 06:33 08/26/20 05:50 08/28/20 06:33 WBC 10.0 RBC 4.64 Hgb 11.5 L Hct 35.2 L MCV 76 L MCH 24.7 L MCHC 32.7 RDW 19.0 H Plt Count 377 Seg Neutrophils % 68.4 08/25/20 08/25/20 08/25/20 02:15 10:03 16:54 Troponin I 0.040 0.042 0.040 NT-Pro-B Natriuret Pep 2270 H Impressions: Chest X-Ray 08/25/20 02:10 IMPRESSION: Bilateral pneumonitis copyright 2011 [employer]- All Rights Reserved 08/28/20 06:33 08/26/20 05:50 MCV 76 fl (80-97) L 08/28/20 06:33 MCH 24.7 pg (27.0-33.4) L 08/28/20 06:33 MCHC 32.7 g/dL (32.0-36.0) 08/28/20 06:33 RDW 19.0 % (11.5-14.0) H 08/28/20 06:33 Seg Neutrophils % 68.4 % (42-78) 08/28/20 06:33 Chloride 107 mmol/L (98-107) 08/26/20 05:50 Carbon Dioxide 25 mmol/L (22-30) 08/26/20 05:50 Anion Gap 7 (5-19) 08/26/20 05:50 Est GFR ( Amer) > 60 (>60) 08/26/20 05:50 Glucose 99 mg/dL (75-110) 08/26/20 05:50 Calcium 8.5 mg/dL (8.4-10.2) 08/26/20 05:50 Total Bilirubin 0.8 mg/dL (0.2-1.3) 08/25/20 02:15 AST 22 U/L (14-36) 08/25/20 02:15 Alkaline Phosphatase 108 U/L (38-126) 08/25/20 02:15 Total Protein 7.3 g/dL (6.3-8.2) 08/25/20 02:15 Albumin 4.0 g/dL (3.5-5.0) 08/25/20 02:15 08/25/20 08/25/20 08/25/20 02:15 10:03 16:54 Troponin I 0.040 0.042 0.040 NT-Pro-B Natriuret Pep 2270 H Current Medication List Generic Name Dose Route Start Last Admin Trade Name Freq PRN Reason Stop Dose Admin Acetaminophen 650 mg 08/25/20 14:19 Tylenol 325 Mg Tablet PO 09/24/20 14:18 Q4HP PRN FOR PAIN SCALE 1-2 Albuterol/Ipratropium 3 ml 08/25/20 14:19 08/27/20 08:47 Duoneb 3 Ml Ampul NEB 09/24/20 14:18 3 ml RTQ6HP PRN Administration SHORTNESS OF BREATH Aspirin 81 mg 08/26/20 10:00 08/28/20 09:40 Aspirin 81 Mg Chewable Tablet PO 09/25/20 09:59 81 mg DAILY GUSTAVO Administration Docusate Sodium 100 mg 08/26/20 10:00 08/28/20 09:40 Colace 100 Mg Capsule PO 09/25/20 09:59 100 mg DAILY GUSTAVO Administration Enoxaparin Sodium 40 mg 08/26/20 10:00 08/28/20 09:40 Lovenox Inj 40 Mg/0.4 Ml Disp.Syrin SUBCUT 09/25/20 09:59 40 mg DAILY GUSTAVO Administration Furosemide 40 mg 08/29/20 10:00 Lasix 40 Mg Tablet PO 09/28/20 09:59 DAILY GUSTAVO Lisinopril 20 mg 08/28/20 10:00 08/28/20 09:39 Prinivil 10 Mg Tablet PO 09/27/20 09:59 20 mg DAILY GUSTAVO Administration Metoprolol Succinate 25 mg 08/25/20 22:00 08/28/20 09:40 Toprol Xl 25 Mg Tab.Sr PO 09/24/20 21:59 25 mg Q12 GUSTAVO Administration Nitroglycerin 1 tab 08/25/20 14:29 Nitrostat 0.4 Mg (1/150 Gr) Tabs 25/Bottle SL 09/24/20 14:28 Q5MP PRN FOR CHEST PAIN Ondansetron HCl 4 mg 08/25/20 14:19 08/26/20 22:18 Zofran Inj/Pf 4 Mg/2 Ml Sdv IV 09/24/20 14:18 4 mg Q6HP PRN Administration FOR NAUSEA/VOMITING Oxycodone/Acetaminophen 1 tab 08/25/20 14:19 08/25/20 17:49 Percocet 5-325 Mg Tablet PO 09/01/20 14:18 1 tab Q6HP PRN Administration FOR PAIN SCALE 3-4 Pantoprazole Sodium 40 mg 08/26/20 06:00 08/28/20 05:[address] Tablet PO 09/25/20 05:59 40 mg Q6AM GUSTAVO Administration Zolpidem Tartrate 5 mg 08/25/20 14:19 08/26/20 21:57 Ambien 5 Mg Tablet PO 09/01/20 14:18 5 mg HSP PRN Administration SLEEP OR INSOMNIA Discontinued Medications Generic Name Dose Route Start Last Admin Trade Name Freq PRN Reason Stop Dose Admin Aspirin 324 mg 08/25/20 10:53 08/25/20 11:06 Aspirin 81 Mg Chewable Tablet PO 08/25/20 10:54 324 mg NOW ONE Administration Azithromycin 500 mg 08/28/20 10:00 08/28/20 09:39 Zithromax 250 Mg Tablet PO 08/31/20 10:01 500 mg DAILY GUSTAVO Administration Furosemide 40 mg 08/25/20 07:24 08/25/20 07:35 Lasix Inj/Pf 40 Mg/4 Ml Sdv IV 08/25/20 07:25 40 mg NOW ONE Administration Furosemide 40 mg 08/25/20 22:00 08/27/20 09:39 Lasix Inj/Pf 40 Mg/4 Ml Sdv IV 09/24/20 21:59 40 mg Q12 GUSTAVO Administration Furosemide 40 mg 08/28/20 10:00 08/28/20 09:40 Lasix Inj/Pf 40 Mg/4 Ml Sdv IV 09/27/20 09:59 40 mg DAILY GUSTAVO Administration Azithromycin 500 mg/ Dextrose 250 mls @ 250 mls/hr 08/25/20 16:00 08/27/20 09:39 IV 09/01/20 15:59 250 mls/hr DAILY GUSTAVO 250 mls/hr Administration Labetalol HCl 20 mg 08/25/20 06:42 08/25/20 07:36 Normodyne Inj 20 Mg/4 Ml Syringe IV 08/25/20 06:43 20 mg NOW ONE Administration Lisinopril 10 mg 08/28/20 10:00 Prinivil 10 Mg Tablet PO 09/27/20 09:59 DAILY GUSTAVO Morphine Sulfate 2 mg 08/25/20 07:25 08/25/20 07:25 Morphine 10 Mg/Ml Inj IV 08/25/20 07:26 Not Given NOW ONE Nitroglycerin 0.5 gm 08/25/20 07:25 08/25/20 07:47 Nitrol 2% Ointment 1gm Packet TP 08/25/20 07:26 0.5 gm NOW ONE Administration Ondansetron HCl 4 mg 08/25/20 07:26 08/25/20 07:47 Zofran Inj/Pf 4 Mg/2 Ml Sdv IV 08/25/20 07:27 4 mg NOW ONE Administration Assessment & Plan - Diagnosis (1) 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 The etiology of her cardiomyopathy is likely to be ischemic given her cardiac risk factors. Un fortunately she continues to be fluid overloaded and symptomatic even when sitting at a 45 degree angle in bed with a fluid balance of +1.2 to 3 L. Her BNP is elevated at 2270 and her troponin is flat in the indeterminate range. Recommendations: -Discontinue lisinopril. -Discontinue Toprol. -Discontinue p.o. Lasix. -Start Entresto 49 mg / 51 mg p.o. twice daily on 08/31/2020. -Start Coreg 3.125 mg twice daily. -Start Lasix 40 mg IV twice daily. -Restrict fluid intake to 1500 cc daily. -Low sodium diet, less than 1500 mg daily. -Strict intake and output. -Daily weights. -Daily BMP. -Ischemic evaluation with left heart catheterization once the patient is euvolemic. (2) Left bundle branch block Is this a current diagnosis for this admission?: Yes Plan: It is unknown at this point whether or not this is a new finding however the patient will require ischemic work-up once she is euvolemic. Recommendations: -Continue with cardiac telemetry. (3) Hypertensive emergency Is this a current diagnosis for this admission?: Yes Plan: Her blood pressure is better controlled now. Recommendations: -Please see #1. (4) Tobacco use Is this a current diagnosis for this admission?: Yes Plan: The patient states that she has significantly decreased her smoking to less than 0.5 pack/day. Recommendations: -Smoking cessation.
[2020-08-28] MEDS: FUROSEMIDE INJ/PF 40 MG/4 ML SDV IV SCH (17:51)
[2020-08-28] MEDS: CARVEDILOL 3.125 MG TABLET PO SCH (22:23)
[2020-08-29] MEDS: PANTOPRAZOLE SODIUM 40 MG TABLET.DR PO SCH (06:06)
[2020-08-29 07:23] LABS: ANION GAP 9 (5-19); BLOOD UREA NITROGEN 20 mg/dL (7-20); CALCIUM 8.8 mg/dL (8.4-10.2); CARBON DIOXIDE 27 mmol/L (22-30); CHLORIDE 107 mmol/L (98-107); GLUCOSE 105 mg/dL (75-110)
[2020-08-29] MEDS ORDERED: FUROSEMIDE 40 MG TABLET PO SCH (10:00)
[2020-08-29] MEDS: ASPIRIN 81 MG TABLET, CHEWABLE PO SCH (10:35)
[2020-08-29] MEDS: ENOXAPARIN SODIUM INJ 40 MG/0.4 ML DISP.SYRIN SUBCUT SCH (10:36)
[2020-08-29] MEDS: CARVEDILOL 3.125 MG TABLET PO SCH ×2 (10:36→21:52)
[2020-08-29] MEDS: FUROSEMIDE INJ/PF 40 MG/4 ML SDV IV SCH ×2 (10:36→18:45)
[2020-08-29] MEDS: DOCUSATE SODIUM 100 MG CAPSULE PO SCH (10:36)
--- NOTE | 2020-08-29 12:50 | PDOC PROGRESS REPORT ---
Subjective Progress Note for:: 08/29/20 Subjective:: MICHELE GONZALEZ is a 55 year old female with history of hypertension, smoker of 1.5 pack/days for more than 30 years and with family history of coronary artery disease in her father who is consulted to our service for evaluation of heart failure. The patient was admitted to our facility approximately 3 days ago when she presented to the emergency room complaining of shortness of breath, progressive lower extremity edema up to her knees, orthopnea and PND. In the e mergency room she was found to have an elevated blood pressure and the patient admitted to be noncompliant with her antihypertensives. She was admitted and placed on appropriate medical therapy however she continues to complain of dyspnea even when seated at a 45 degree angle in bed. 08/29/2020: The patient had an uneventful night and actually feels 100% better. She has no new complaints this morning. Her blood pressure, although improved, is still above goal. His electrolytes are within normal limits. Her fluid balance is - 982 cc. Her telemetry shows normal sinus rhythm. Physical exam on 08/29/2020: GENERAL: Pleasant and conversational in short sentences. Mildly short of breath. Oriented x3 with normal mood. Not in acute distress. Well groomed and well developed. HEENT: Normocephalic, atraumatic. Pupils equal. Sclerae anicteric. Oropharynx moist. NECK: No JVD. No carotid bruits. LUNGS: Clear to auscultation bilaterally. Normal respiratory effort without the use of accessory muscles or intercostal retractions. CARDIOVASCULAR: Regular rate and rhythm, normal S1 and S2 without murmurs, rubs, or gallops. PMI not displaced. ABDOMEN: No masses or tenderness to palpation. No bruit. No splenomegaly or hepatomegaly. No abdominal aorta bruit noted. EXTREMITIES: 1+ pitting edema bilaterally, no cyanosis, no clubbing. +2 pulses femoral and pedal pulses bilaterally. SKIN: No lesions or rashes. MUSCULOSKELETAL: No chest tenderness to palpation. NEUROLOGIC: Nonfocal. No gross sensory or motor deficits bilateral upper or lower extremities. Cardiac studies: Echocardiogram on 08/27/2020: -EF 35%. -Grade 3 diastolic dysfunction. -Cannot comment on wall motion abnormalities. -Mild concentric LVH. -Mild MR. Reason For Visit: HYPERTENSIVE URGENCY, R/O COVID,ELEVATED TROPONIN Physical Exam Vital Signs: Temp Pulse Resp BP Pulse Ox 98.4 F 86 18 141/53 H 94 08/29/20 00:00 08/29/20 02:00 08/29/20 00:00 08/29/20 00:00 08/29/20 00:00 Intake & Output 08/28/20 08/29/20 08/30/20 06:59 06:59 06:59 Intake Total 996 1580 Output Total 1000 2950 Balance -4 -1370 Weight 90.7 kg 89 kg Results Laboratory Results: 08/28/20 06:33 08/25/20 08/25/20 08/25/20 02:15 10:03 16:54 Troponin I 0.040 0.042 0.040 NT-Pro-B Natriuret Pep 2270 H Impressions: Chest X-Ray 08/25/20 02:10 IMPRESSION: Bilateral pneumonitis copyright 2011 [employer]- All Rights Reserved 08/28/20 06:33 MCV 76 fl (80-97) L 08/28/20 06:33 MCH 24.7 pg (27.0-33.4) L 08/28/20 06:33 MCHC 32.7 g/dL (32.0-36.0) 08/28/20 06:33 RDW 19.0 % (11.5-14.0) H 08/28/20 06:33 Seg Neutrophils % 68.4 % (42-78) 08/28/20 06:33 Chloride 107 mmol/L (98-107) 08/26/20 05:50 Carbon Dioxide 25 mmol/L (22-30) 08/26/20 05:50 Anion Gap 7 (5-19) 08/26/20 05:50 Est GFR ( Amer) > 60 (>60) 08/26/20 05:50 Glucose 99 mg/dL (75-110) 08/26/20 05:50 Calcium 8.5 mg/dL (8.4-10.2) 08/26/20 05:50 Total Bilirubin 0.8 mg/dL (0.2-1.3) 08/25/20 02:15 AST 22 U/L (14-36) 08/25/20 02:15 Alkaline Phosphatase 108 U/L (38-126) 08/25/20 02:15 Total Protein 7.3 g/dL (6.3-8.2) 08/25/20 02:15 Albumin 4.0 g/dL (3.5-5.0) 08/25/20 02:15 08/25/20 08/25/20 08/25/20 02:15 10:03 16:54 Troponin I 0.040 0.042 0.040 NT-Pro-B Natriuret Pep 2270 H Current Medication List Generic Name Dose Route Start Last Admin Trade Name Freq PRN Reason Stop Dose Admin Acetaminophen 650 mg 08/25/20 14:19 Tylenol 325 Mg Tablet PO 09/24/20 14:18 Q4HP PRN FOR PAIN SCALE 1-2 Albuterol/Ipratropium 3 ml 08/25/20 14:19 08/27/20 08:47 Duoneb 3 Ml Ampul NEB 09/24/20 14:18 3 ml RTQ6HP PRN Administration SHORTNESS OF BREATH Aspirin 81 mg 08/26/20 10:00 08/28/20 09:40 Aspirin 81 Mg Chewable Tablet PO 09/25/20 09:59 81 mg DAILY GUSTAVO Administration Carvedilol 3.125 mg 08/28/20 22:00 08/28/20 22:23 Coreg 3.125 Mg Tablet PO 09/27/20 21:59 3.125 mg Q12 GUSTAVO Administration Docusate Sodium 100 mg 08/26/20 10:00 08/28/20 09:40 Colace 100 Mg Capsule PO 09/25/20 09:59 100 mg DAILY GUSTAVO Administration Enoxaparin Sodium 40 mg 08/26/20 10:00 08/28/20 09:40 Lovenox Inj 40 Mg/0.4 Ml Disp.Syrin SUBCUT 09/25/20 09:59 40 mg DAILY GUSTAVO Administration Furosemide 40 mg 08/28/20 18:00 08/28/20 17:51 Lasix Inj/Pf 40 Mg/4 Ml Sdv IV 09/27/20 17:59 40 mg BID GUSTAVO Administration Nitroglycerin 1 tab 08/25/20 14:29 Nitrostat 0.4 Mg (1/150 Gr) Tabs 25/Bottle SL 09/24/20 14:28 Q5MP PRN FOR CHEST PAIN Ondansetron HCl 4 mg 08/25/20 14:19 08/26/20 22:18 Zofran Inj/Pf 4 Mg/2 Ml Sdv IV 09/24/20 14:18 4 mg Q6HP PRN Administration FOR NAUSEA/VOMITING Oxycodone/Acetaminophen 1 tab 08/25/20 14:19 08/25/20 17:49 Percocet 5-325 Mg Tablet PO 09/01/20 14:18 1 tab Q6HP PRN Administration FOR PAIN SCALE 3-4 Pantoprazole Sodium 40 mg 08/26/20 06:00 08/29/20 06:[address] Tablet PO 09/25/20 05:59 40 mg Q6AM GUSTAVO Administration Zolpidem Tartrate 5 mg 08/25/20 14:19 08/26/20 21:57 Ambien 5 Mg Tablet PO 09/01/20 14:18 5 mg HSP PRN Administration SLEEP OR INSOMNIA Discontinued Medications Generic Name Dose Route Start Last Admin Trade Name Freq PRN Reason Stop Dose Admin Aspirin 324 mg 08/25/20 10:53 08/25/20 11:06 Aspirin 81 Mg Chewable Tablet PO 08/25/20 10:54 324 mg NOW ONE Administration Azithromycin 500 mg 08/28/20 10:00 08/28/20 09:39 Zithromax 250 Mg Tablet PO 08/31/20 10:01 500 mg DAILY GUSTAVO Administration Furosemide 40 mg 08/25/20 07:24 08/25/20 07:35 Lasix Inj/Pf 40 Mg/4 Ml Sdv IV 08/25/20 07:25 40 mg NOW ONE Administration Furosemide 40 mg 08/25/20 22:00 08/27/20 09:39 Lasix Inj/Pf 40 Mg/4 Ml Sdv IV 09/24/20 21:59 40 mg Q12 GUSTAVO Administration Furosemide 40 mg 08/28/20 10:00 08/28/20 09:40 Lasix Inj/Pf 40 Mg/4 Ml Sdv IV 09/27/20 09:59 40 mg DAILY GUSTAVO Administration Furosemide 40 mg 08/29/20 10:00 Lasix 40 Mg Tablet PO 09/28/20 09:59 DAILY GUSTAVO Azithromycin 500 mg/ Dextrose 250 mls @ 250 mls/hr 08/25/20 16:00 08/27/20 09:39 IV 09/01/20 15:59 250 mls/hr DAILY GUSTAVO 250 mls/hr Administration Labetalol HCl 20 mg 08/25/20 06:42 08/25/20 07:36 Normodyne Inj 20 Mg/4 Ml Syringe IV 08/25/20 06:43 20 mg NOW ONE Administration Lisinopril 10 mg 08/28/20 10:00 Prinivil 10 Mg Tablet PO 09/27/20 09:59 DAILY GUSTAVO Lisinopril 20 mg 08/28/20 10:00 08/28/20 09:39 Prinivil 10 Mg Tablet PO 09/27/20 09:59 20 mg DAILY GUSTAVO Administration Metoprolol Succinate 25 mg 08/25/20 22:00 08/28/20 09:40 Toprol Xl 25 Mg Tab.Sr PO 09/24/20 21:59 25 mg Q12 GUSTAVO Administration Morphine Sulfate 2 mg 08/25/20 07:25 08/25/20 07:25 Morphine 10 Mg/Ml Inj IV 08/25/20 07:26 Not Given NOW ONE Nitroglycerin 0.5 gm 08/25/20 07:25 08/25/20 07:47 Nitrol 2% Ointment 1gm Packet TP 08/25/20 07:26 0.5 gm NOW ONE Administration Ondansetron HCl 4 mg 08/25/20 07:26 08/25/20 07:47 Zofran Inj/Pf 4 Mg/2 Ml Sdv IV 08/25/20 07:27 4 mg NOW ONE Administration 08/28/20 06:33 08/29/20 05:48 MCV 76 fl (80-97) L 08/28/20 06:33 MCH 24.7 pg (27.0-33.4) L 08/28/20 06:33 MCHC 32.7 g/dL (32.0-36.0) 08/28/20 06:33 RDW 19.0 % (11.5-14.0) H 08/28/20 06:33 Seg Neutrophils % 68.4 % (42-78) 08/28/20 06:33 Chloride 107 mmol/L (98-107) 08/29/20 05:48 Carbon Dioxide 27 mmol/L (22-30) 08/29/20 05:48 Anion Gap 9 (5-19) 08/29/20 05:48 Est GFR ( Amer) > 60 (>60) 08/29/20 05:48 Glucose 105 mg/dL (75-110) 08/29/20 05:48 Calcium 8.8 mg/dL (8.4-10.2) 08/29/20 05:48 Total Bilirubin 0.8 mg/dL (0.2-1.3) 08/25/20 02:15 AST 22 U/L (14-36) 08/25/20 02:15 Alkaline Phosphatase 108 U/L (38-126) 08/25/20 02:15 Total Protein 7.3 g/dL (6.3-8.2) 08/25/20 02:15 Albumin 4.0 g/dL (3.5-5.0) 08/25/20 02:15 08/25/20 08/25/20 08/25/20 02:15 10:03 16:54 Troponin I 0.040 0.042 0.040 NT-Pro-B Natriuret Pep 2270 H Assessment & Plan - Diagnosis (1) 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 The etiology of her cardiomyopathy is likely to be ischemic given her cardiac risk factors. She feels 100% better today after achieving a fluid balance of -982 cc however she continues to have some lower extremity edema. Her BNP is elevated at 2270 and her troponin is flat in the indeterminate range. Recommendations: -Continue with current medical management for now. -Start Entresto 49 mg / 51 mg p.o. twice daily 36 hours after last dose of lisinopril. -Restrict fluid intake to 1500 cc daily. -Low sodium diet, less than 1500 mg daily. -Strict intake and output. -Daily weights. -Daily BMP. -Ischemic evaluation with left heart catheterization once the patient is euvolemic. -Repeat chest x-ray and proBNP. (2) Left bundle branch block Is this a current diagnosis for this admission?: Yes Plan: It is unknown at this point whether or not this is a new finding however the patient will require ischemic work-up once she is euvolemic. Recommendations: -Continue with cardiac telemetry. (3) Hypertensive emergency Is this a current diagnosis for this admission?: Yes Plan: Her blood pressure is improved although still mildly above goal. I expect the blood pressure to improve once Entresto is started. Recommendations: -Please see #1. (4) Tobacco use Is this a current diagnosis for this admission?: Yes Plan: The patient states that she has significantly decreased her smoking to less than 0.5 pack/day. Recommendations: -Smoking cessation.
--- NOTE | 2020-08-29 16:43 | PDOC PROGRESS REPORT ---
Subjective Progress Note for:: 08/29/20 Subjective:: Feels well denies shortness of breath. Reason For Visit: HYPERTENSIVE URGENCY, R/O COVID,ELEVATED TROPONIN Physical Exam Vital Signs: Temp Pulse Resp BP Pulse Ox 98.3 F 78 15 156/77 H 98 08/29/20 15:02 08/29/20 15:02 08/29/20 15:02 08/29/20 15:02 08/29/20 15:02 Intake & Output 08/28/20 08/29/20 08/30/20 06:59 06:59 06:59 Intake Total 996 1580 520 Output Total 1000 2950 Balance -4 -1370 520 Weight 90.7 kg 89 kg General appearance: PRESENT: no acute distress, cooperative Respiratory exam: PRESENT: symmetrical, unlabored. ABSENT: accessory muscle use, crackles, tachypnea, wheezes Cardiovascular exam: PRESENT: RRR, +S1, +S2. ABSENT: tachycardia GI/Abdominal exam: PRESENT: soft. ABSENT: rebound, rigid, tenderness Neurological exam: PRESENT: alert, awake, oriented to person, oriented to place, oriented to time Results Laboratory Results: 08/28/20 06:33 08/29/20 05:48 08/29/20 05:48 Sodium 143.4 Potassium 4.0 Chloride 107 Carbon Dioxide 27 Anion Gap 9 BUN 20 Creatinine 1.00 Est GFR ( Amer) > 60 Glucose 105 Calcium 8.8 08/25/20 08/25/20 08/25/20 02:15 10:03 16:54 Troponin I 0.040 0.042 0.040 NT-Pro-B Natriuret Pep 2270 H Impressions: Chest X-Ray 08/25/20 02:10 IMPRESSION: Bilateral pneumonitis copyright 2011 [employer]- All Rights Reserved Assessment and Plan - Diagnosis (1) CHF (congestive heart failure) Qualifiers: Heart failure type: combined systolic and diastolic Heart failure chronicity: acute on chronic Qualified Code(s): I50.43 - Acute on chronic combined systolic (congestive) and diastolic (congestive) heart failure Is this a current diagnosis for this admission?: Yes Plan: Currently patient is hemodynamically stable and close to euvolemia at this point. However echocardiogram comes back showing grade 3 diastolic dysfunction but with an EF of 35%. Cardiology consulted. Medications adjusted yesterday. Continue Coreg. On Lasix IV twice daily. Strict I's and O's. Patient will complete 36-hour washout this evening and will be started on Entresto as recommended tonight. Check electrolytes and renal function and labs in the morning She will need ischemic evaluation (2) Hypertensive emergency Is this a current diagnosis for this admission?: Yes Plan: BP is better controlled at this point. (3) Left bundle branch block Is this a current diagnosis for this admission?: Yes (4) Elevated troponin I level Is this a current diagnosis for this admission?: Yes - Time Time Spent with patient: Less than 15 minutes Anticipated Discharge Disposition: Home, Self Care Anticipated Discharge Timeframe: within 36 hours
[2020-08-29] MEDS: SACUBITRIL/VALSARTAN 49 MG/51 MG TABLET PO SCH (21:52)
[2020-08-30 05:53] LABS: ANION GAP 9 (5-19); BLOOD UREA NITROGEN 18 mg/dL (7-20); CALCIUM 8.8 mg/dL (8.4-10.2); CARBON DIOXIDE 25 mmol/L (22-30); CHLORIDE 106 mmol/L (98-107); GLUCOSE 111 mg/dL (75-110)
[2020-08-30] MEDS: PANTOPRAZOLE SODIUM 40 MG TABLET.DR PO SCH (06:31)
--- NOTE | 2020-08-30 11:11 | PDOC PROGRESS REPORT ---
Subjective Progress Note for:: 08/30/20 Subjective:: MICHELE GONZALEZ is a 55 year old female with history of hypertension, smoker of 1.5 pack/days for more than 30 years and with family history of coronary artery disease in her father who is consulted to our service for evaluation of heart failure. The patient was admitted to our facility approximately 3 days ago when she presented to the emergency room complaining of shortness of breath, progressive lower extremity edema up to her knees, orthopnea and PND. In the e mergency room she was found to have an elevated blood pressure and the patient admitted to be noncompliant with her antihypertensives. She was admitted and placed on appropriate medical therapy however she continues to complain of dyspnea even when seated at a 45 degree angle in bed. 08/30/2020: The patient had an uneventful night and and continues to feel better. She has no new complaints this morning. Her blood pressure, although improved, is still above goal. She was begun on Entresto 49/51 mg twice daily yesterday without side effects. She is now -3 L. Her telemetry shows normal sinus rhythm with brief episodes of nonsustained VT. Physical exam on 08/30/2020: GENERAL: Pleasant and conversational in short sentences. Mildly short of breath. Oriented x3 with normal mood. Not in acute distress. Well groomed and well developed. HEENT: Normocephalic, atraumatic. Pupils equal. Sclerae anicteric. Oropharynx moist. NECK: No JVD. No carotid bruits. LUNGS: Clear to auscultation bilaterally. Normal respiratory effort without the use of accessory muscles or intercostal retractions. CARDIOVASCULAR: Regular rate and rhythm, normal S1 and S2 without murmurs, rubs, or gallops. PMI not displaced. ABDOMEN: No masses or tenderness to palpation. No bruit. No splenomegaly or hepatomegaly. No abdominal aorta bruit noted. EXTREMITIES: Trace pitting edema bilaterally, no cyanosis, no clubbing. +2 pulses femoral and pedal pulses bilaterally. SKIN: No lesions or rashes. MUSCULOSKELETAL: No chest tenderness to palpation. NEUROLOGIC: Nonfocal. No gross sensory or motor deficits bilateral upper or lower extremities. Cardiac studies: Echocardiogram on 08/27/2020: -EF 35%. -Grade 3 diastolic dysfunction. -Cannot comment on wall motion abnormalities. -Mild concentric LVH. -Mild MR. Reason For Visit: HYPERTENSIVE URGENCY, R/O COVID,ELEVATED TROPONIN Physical Exam Vital Signs: Temp Pulse Resp BP Pulse Ox 98.1 F 76 16 136/83 H 92 08/30/20 04:42 08/30/20 04:42 08/30/20 04:42 08/30/20 04:42 08/30/20 04:42 Intake & Output 08/29/20 08/30/20 08/31/20 06:59 06:59 06:59 Intake Total 1580 1030 Output Total 2950 2150 Balance -1370 -1120 Weight 89 kg Results Laboratory Results: 08/28/20 06:33 08/30/20 04:25 08/29/20 08/30/20 05:48 04:25 Sodium 143.4 140.2 Potassium 4.0 4.0 Chloride 107 106 Carbon Dioxide 27 25 Anion Gap 9 9 BUN 20 18 Creatinine 1.00 1.08 Est GFR ( Amer) > 60 > 60 Glucose 105 111 H Calcium 8.8 8.8 Phosphorus 4.0 Magnesium 2.6 H 08/25/20 08/25/20 08/25/20 02:15 10:03 16:54 Troponin I 0.040 0.042 0.040 NT-Pro-B Natriuret Pep 2270 H Impressions: Chest X-Ray 08/25/20 02:10 IMPRESSION: Bilateral pneumonitis copyright 2011 [employer] [facility] [employer]- All Rights Reserved 08/28/20 06:33 08/30/20 04:25 MCV 76 fl (80-97) L 08/28/20 06:33 MCH 24.7 pg (27.0-33.4) L 08/28/20 06:33 MCHC 32.7 g/dL (32.0-36.0) 08/28/20 06:33 RDW 19.0 % (11.5-14.0) H 08/28/20 06:33 Seg Neutrophils % 68.4 % (42-78) 08/28/20 06:33 Chloride 106 mmol/L (98-107) 08/30/20 04:25 Carbon Dioxide 25 mmol/L (22-30) 08/30/20 04:25 Anion Gap 9 (5-19) 08/30/20 04:25 Est GFR ( Amer) > 60 (>60) 08/30/20 04:25 Glucose 111 mg/dL (75-110) H 08/30/20 04:25 Calcium 8.8 mg/dL (8.4-10.2) 08/30/20 04:25 Phosphorus 4.0 mg/dL (2.5-4.5) 08/30/20 04:25 Magnesium 2.6 mg/dL (1.6-2.3) H 08/30/20 04:25 Total Bilirubin 0.8 mg/dL (0.2-1.3) 08/25/20 02:15 AST 22 U/L (14-36) 08/25/20 02:15 Alkaline Phosphatase 108 U/L (38-126) 08/25/20 02:15 Total Protein 7.3 g/dL (6.3-8.2) 08/25/20 02:15 Albumin 4.0 g/dL (3.5-5.0) 08/25/20 02:15 08/25/20 08/25/20 08/25/20 02:15 10:03 16:54 Troponin I 0.040 0.042 0.040 NT-Pro-B Natriuret Pep 2270 H Current Medication List Generic Name Dose Route Start Last Admin Trade Name Freq PRN Reason Stop Dose Admin Acetaminophen 650 mg 08/25/20 14:19 Tylenol 325 Mg Tablet PO 09/24/20 14:18 Q4HP PRN FOR PAIN SCALE 1-2 Albuterol/Ipratropium 3 ml 08/25/20 14:19 08/27/20 08:47 Duoneb 3 Ml Ampul NEB 09/24/20 14:18 3 ml RTQ6HP PRN Administration SHORTNESS OF BREATH Aspirin 81 mg 08/26/20 10:00 08/29/20 10:35 Aspirin 81 Mg Chewable Tablet PO 09/25/20 09:59 81 mg DAILY GUSTAVO Administration Carvedilol 3.125 mg 08/28/20 22:00 08/29/20 21:52 Coreg 3.125 Mg Tablet PO 09/27/20 21:59 3.125 mg Q12 GUSTAVO Administration Docusate Sodium 100 mg 08/26/20 10:00 08/29/20 10:36 Colace 100 Mg Capsule PO 09/25/20 09:59 100 mg DAILY GUSTAVO Administration Enoxaparin Sodium 40 mg 08/26/20 10:00 08/29/20 10:36 Lovenox Inj 40 Mg/0.4 Ml Disp.Syrin SUBCUT 09/25/20 09:59 40 mg DAILY GUSTAVO Administration Furosemide 40 mg 08/28/20 18:00 08/29/20 18:45 Lasix Inj/Pf 40 Mg/4 Ml Sdv IV 09/27/20 17:59 40 mg BID GUSTAVO Administration Nitroglycerin 1 tab 08/25/20 14:29 Nitrostat 0.4 Mg (1/150 Gr) Tabs 25/Bottle SL 09/24/20 14:28 Q5MP PRN FOR CHEST PAIN Ondansetron HCl 4 mg 08/25/20 14:19 08/26/20 22:18 Zofran Inj/Pf 4 Mg/2 Ml Sdv IV 09/24/20 14:18 4 mg Q6HP PRN Administration FOR NAUSEA/VOMITING Oxycodone/Acetaminophen 1 tab 08/25/20 14:19 08/25/20 17:49 Percocet 5-325 Mg Tablet PO 09/01/20 14:18 1 tab Q6HP PRN Administration FOR PAIN SCALE 3-4 Pantoprazole Sodium 40 mg 08/26/20 06:00 08/30/20 06:[address] Tablet PO 09/25/20 05:59 40 mg Q6AM GUSTAVO Administration Sacubitril/Valsartan 1 tab 08/29/20 22:00 08/29/20 21:52 Entresto 49 Mg/51 Mg Tablet PO 09/28/20 21:59 1 tab Q12 GUSTAVO Administration Zolpidem Tartrate 5 mg 08/25/20 14:19 08/26/20 21:57 Ambien 5 Mg Tablet PO 09/01/20 14:18 5 mg HSP PRN Administration SLEEP OR INSOMNIA Discontinued Medications Generic Name Dose Route Start Last Admin Trade Name Freq PRN Reason Stop Dose Admin Aspirin 324 mg 08/25/20 10:53 08/25/20 11:06 Aspirin 81 Mg Chewable Tablet PO 08/25/20 10:54 324 mg NOW ONE Administration Azithromycin 500 mg 08/28/20 10:00 08/28/20 09:39 Zithromax 250 Mg Tablet PO 08/31/20 10:01 500 mg DAILY GUSTAVO Administration Furosemide 40 mg 08/25/20 07:24 08/25/20 07:35 Lasix Inj/Pf 40 Mg/4 Ml Sdv IV 08/25/20 07:25 40 mg NOW ONE Administration Furosemide 40 mg 08/25/20 22:00 08/27/20 09:39 Lasix Inj/Pf 40 Mg/4 Ml Sdv IV 09/24/20 21:59 40 mg Q12 GUSTAVO Administration Furosemide 40 mg 08/28/20 10:00 08/28/20 09:40 Lasix Inj/Pf 40 Mg/4 Ml Sdv IV 09/27/20 09:59 40 mg DAILY GUSTAVO Administration Furosemide 40 mg 08/29/20 10:00 Lasix 40 Mg Tablet PO 09/28/20 09:59 DAILY GUSTAVO Azithromycin 500 mg/ Dextrose 250 mls @ 250 mls/hr 08/25/20 16:00 08/27/20 09:39 IV 09/01/20 15:59 250 mls/hr DAILY GUSTAVO 250 mls/hr Administration Labetalol HCl 20 mg 08/25/20 06:42 08/25/20 07:36 Normodyne Inj 20 Mg/4 Ml Syringe IV 08/25/20 06:43 20 mg NOW ONE Administration Lisinopril 10 mg 08/28/20 10:00 Prinivil 10 Mg Tablet PO 09/27/20 09:59 DAILY GUSTAVO Lisinopril 20 mg 08/28/20 10:00 08/28/20 09:39 Prinivil 10 Mg Tablet PO 09/27/20 09:59 20 mg DAILY GUSTAVO Administration Metoprolol Succinate 25 mg 08/25/20 22:00 08/28/20 09:40 Toprol Xl 25 Mg Tab.Sr PO 09/24/20 21:59 25 mg Q12 GUSTAVO Administration Morphine Sulfate 2 mg 08/25/20 07:25 08/25/20 07:25 Morphine 10 Mg/Ml Inj IV 08/25/20 07:26 Not Given NOW ONE Nitroglycerin 0.5 gm 08/25/20 07:25 08/25/20 07:47 Nitrol 2% Ointment 1gm Packet TP 08/25/20 07:26 0.5 gm NOW ONE Administration Ondansetron HCl 4 mg 08/25/20 07:26 08/25/20 07:47 Zofran Inj/Pf 4 Mg/2 Ml Sdv IV 08/25/20 07:27 4 mg NOW ONE Administration Assessment & Plan - Diagnosis (1) 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 The etiology of her cardiomyopathy is likely to be ischemic given her cardiac risk factors. She continues to feel much better after achieving a fluid balance of -3 L. Unfortunately she did have brief episodes of nonsustained VT on telemetry . Recommendations: -Increase Coreg to 6.25 mg twice daily. -Discontinue IV Lasix and switch to p.o. Lasix 40 mg twice daily. -Repeat proBNP today. -Repeat chest x-ray today. -LifeVest prior to discharge. -Plan to discharge patient tomorrow if no complications. -Restrict fluid intake to 1500 cc daily. -Low sodium diet, less than 1500 mg daily. -Strict intake and output. -Daily weights. -Daily BMP. -Ischemic evaluation with left heart catheterization once the patient is euvolemic. (2) Left bundle branch block Is this a current diagnosis for this admission?: Yes Plan: It is unknown at this point whether or not this is a new finding however the patient will require ischemic work-up once she is euvolemic. Recommendations: -Continue with cardiac telemetry. (3) Hypertensive emergency Is this a current diagnosis for this admission?: Yes Plan: Her blood pressure is improved although still mildly above goal. Recommendations: -Increase carvedilol to 6.25 mg twice daily. (4) Tobacco use Is this a current diagnosis for this admission?: Yes Plan: The patient states that she has significantly decreased her smoking to less than 0.5 pack/day. Recommendations: -Smoking cessation.
[2020-08-30] MEDS: DOCUSATE SODIUM 100 MG CAPSULE PO SCH (11:49)
[2020-08-30] MEDS: SACUBITRIL/VALSARTAN 49 MG/51 MG TABLET PO SCH ×2 (11:49→21:16)
[2020-08-30] MEDS: ASPIRIN 81 MG TABLET, CHEWABLE PO SCH (11:49)
[2020-08-30] MEDS: ENOXAPARIN SODIUM INJ 40 MG/0.4 ML DISP.SYRIN SUBCUT SCH (11:50)
--- NOTE | 2020-08-30 12:13 | PDOC PROGRESS REPORT ---
Subjective Progress Note for:: 08/30/20 Subjective:: Patient states she is breathing a whole lot better. Reason For Visit: HYPERTENSIVE URGENCY, R/O COVID,ELEVATED TROPONIN Physical Exam Vital Signs: Temp Pulse Resp BP Pulse Ox 98.2 F 91 19 139/114 H 100 08/30/20 11:47 08/30/20 11:47 08/30/20 11:47 08/30/20 11:47 08/30/20 11:47 Intake & Output 08/29/20 08/30/20 08/31/20 06:59 06:59 06:59 Intake Total 1580 1130 Output Total 2950 3150 Balance -1369 Weight 89 kg General appearance: PRESENT: no acute distress, cooperative Neck exam: ABSENT: JVD Respiratory exam: PRESENT: symmetrical, unlabored. ABSENT: tachypnea, wheezes Cardiovascular exam: PRESENT: RRR, +S1, +S2. ABSENT: tachycardia GI/Abdominal exam: PRESENT: soft. ABSENT: rebound, rigid, tenderness Results Laboratory Results: 08/28/20 06:33 08/30/20 04:25 08/30/20 04:25 Sodium 140.2 Potassium 4.0 Chloride 106 Carbon Dioxide 25 Anion Gap 9 BUN 18 Creatinine 1.08 Est GFR ( Amer) > 60 Glucose 111 H Calcium 8.8 Phosphorus 4.0 Magnesium 2.6 H 08/25/20 08/25/20 08/25/20 02:15 10:03 16:54 Troponin I 0.040 0.042 0.040 NT-Pro-B Natriuret Pep 2270 H Assessment and Plan - Diagnosis (1) CHF (congestive heart failure) Qualifiers: Heart failure type: combined systolic and diastolic Heart failure chronicity: acute on chronic Qualified Code(s): I50.43 - Acute on chronic combined systolic (congestive) and diastolic (congestive) heart failure Is this a current diagnosis for this admission?: Yes Plan: Currently patient is hemodynamically stable and close to euvolemia at this point. However echocardiogram comes back showing grade 3 diastolic dysfunction but with an EF of 35%. Cardiology consulted. Continue Coreg. Lasix switched to p.o. Continue Entresto [coupon was left in patient's chart for Entresto upon discharge]. operations planner is working on getting LifeVest for patient as per cardiology recommendation prior to discharge. She will need ischemic evaluation as outpatient (2) Hypertensive emergency Is this a current diagnosis for this admission?: Yes (3) Left bundle branch block Is this a current diagnosis for this admission?: Yes (4) Elevated troponin I level Is this a current diagnosis for this admission?: Yes - Time Time Spent with patient: Less than 15 minutes Anticipated Discharge Disposition: Home, Self Care Anticipated Discharge Timeframe: within 24 hours - pending life vest
--- NOTE | 2020-08-30 12:25 | RADIOLOGY REPORT (SQ) ---
EXAM DESCRIPTION: CHEST 2 VIEWS IMAGES COMPLETED DATE/TIME: 08/30/2020 11:27 am REASON FOR STUDY: Heart failure COMPARISON: 08/25/2020 EXAM PARAMETERS: NUMBER OF VIEWS: two views TECHNIQUE: Digital Frontal and Lateral radiographic views of the chest acquired. RADIATION DOSE: NA LIMITATIONS: none FINDINGS: LUNGS AND PLEURA: No opacities, masses or pneumothorax. No pleural effusion. MEDIASTINUM AND HILAR STRUCTURES: No masses or contour abnormalities. HEART AND VASCULAR STRUCTURES: The heart size is borderline. No presley pulmonary edema. BONES: No acute findings. HARDWARE: None in the chest. OTHER: No other significant finding. IMPRESSION: Borderline heart size without presley pulmonary edema. TECHNICAL DOCUMENTATION: JOB ID: [id number] 2010 [employer]- All Rights Reserved Reading location - IP/workstation name: [email or web address]
[2020-08-30] MEDS: FUROSEMIDE 40 MG TABLET PO SCH (18:18)
[2020-08-30] MEDS: FUROSEMIDE INJ/PF 40 MG/4 ML SDV IV SCH (19:43)
[2020-08-30] MEDS: CARVEDILOL 3.125 MG TABLET PO SCH (19:43)
[2020-08-30] MEDS: CARVEDILOL 6.25 MG TABLET PO SCH (21:16)
[2020-08-31] MEDS: PANTOPRAZOLE SODIUM 40 MG TABLET.DR PO SCH (06:33)
[2020-08-31 07:44] LABS: ANION GAP 8 (5-19); BLOOD UREA NITROGEN 15 mg/dL (7-20); CALCIUM 8.9 mg/dL (8.4-10.2); CARBON DIOXIDE 25 mmol/L (22-30); CHLORIDE 107 mmol/L (98-107); GLUCOSE 113 mg/dL (75-110); POTASSIUM 4.1 mmol/L (3.6-5.0)
--- NOTE | 2020-08-31 09:46 | RADIOLOGY REPORT (SQ) ---
EXAM DESCRIPTION: CHEST 2 VIEWS IMAGES COMPLETED DATE/TIME: 08/31/2020 9:36 am REASON FOR STUDY: Heart failure COMPARISON: Chest film 08/25/2020, 08/30/2020 EXAM PARAMETERS: NUMBER OF VIEWS: two views TECHNIQUE: Digital Frontal and Lateral radiographic views of the chest acquired. RADIATION DOSE: NA LIMITATIONS: none FINDINGS: LUNGS AND PLEURA: No opacities, masses or pneumothorax. No pleural effusion. MEDIASTINUM AND HILAR STRUCTURES: No masses or contour abnormalities. HEART AND VASCULAR STRUCTURES: Heart normal size. No evidence for failure. BONES: No acute findings. HARDWARE: None in the chest. OTHER: No other significant finding. IMPRESSION: NO ACUTE RADIOGRAPHIC FINDING IN THE CHEST. TECHNICAL DOCUMENTATION: JOB ID: [id number] 2010 [employer]- All Rights Reserved Reading location - IP/workstation name: [email or web address]
[2020-08-31] MEDS: DOCUSATE SODIUM 100 MG CAPSULE PO SCH (10:58)
[2020-08-31] MEDS: FUROSEMIDE 40 MG TABLET PO SCH ×2 (10:58→18:33)
[2020-08-31] MEDS: CARVEDILOL 6.25 MG TABLET PO SCH ×2 (10:58→22:19)
[2020-08-31] MEDS: SACUBITRIL/VALSARTAN 49 MG/51 MG TABLET PO SCH ×2 (10:58→22:19)
[2020-08-31] MEDS: ASPIRIN 81 MG TABLET, CHEWABLE PO SCH (10:58)
[2020-08-31] MEDS: ENOXAPARIN SODIUM INJ 40 MG/0.4 ML DISP.SYRIN SUBCUT SCH (10:58)
--- NOTE | 2020-08-31 18:33 | PDOC PROGRESS REPORT ---
Subjective Progress Note for:: 08/31/20 Subjective:: MICHELE GONZALEZ is a 55 year old female with history of hypertension, smoker of 1.5 pack/days for more than 30 years and with family history of coronary artery disease in her father who is consulted to our service for evaluation of heart failure. The patient was admitted to our facility approximately 3 days ago when she presented to the emergency room complaining of shortness of breath, progressive lower extremity edema up to her knees, orthopnea and PND. In the e mergency room she was found to have an elevated blood pressure and the patient admitted to be noncompliant with her antihypertensives. She was admitted and placed on appropriate medical therapy however she continues to complain of dyspnea even when seated at a 45 degree angle in bed. 08/31/2020: The patient had an uneventful night and and continues to feel better. She has no new complaints this morning. Her blood pressure, although improved, is still above goal. She is tolerating Entresto 49/51 mg twice daily without side effects. She is now -3.069 L. Her telemetry shows normal sinus rhythm with brief episodes of nonsustained VT. her BNP is significantly decreased and her electrolytes are stable. Her chest x-ray did not show pulmonary edema. We are still awaiting LifeVest. Physical exam on 08/31/2020: GENERAL: Pleasant and conversational in short sentences. Mildly short of br eath. Oriented x3 with normal mood. Not in acute distress. Well groomed and well developed. HEENT: Normocephalic, atraumatic. Pupils equal. Sclerae anicteric. Oropharynx moist. NECK: No JVD. No carotid bruits. LUNGS: Clear to auscultation bilaterally. Normal respiratory effort without the use of accessory muscles or intercostal retractions. CARDIOVASCULAR: Regular rate and rhythm, normal S1 and S2 without murmurs, rubs, or gallops. PMI not displaced. ABDOMEN: No masses or tenderness to palpation. No bruit. No splenomegaly or hepatomegaly. No abdominal aorta bruit noted. EXTREMITIES: Trace pitting edema bilaterally, no cyanosis, no clubbing. +2 pulses femoral and pedal pulses bilaterally. SKIN: No lesions or rashes. MUSCULOSKELETAL: No chest tenderness to palpation. NEUROLOGIC: Nonfocal. No gross sensory or motor deficits bilateral upper or lower extremities. Cardiac studies: Echocardiogram on 08/27/2020: -EF 35%. -Grade 3 diastolic dysfunction. -Cannot comment on wall motion abnormalities. -Mild concentric LVH. -Mild MR. Reason For Visit: HYPERTENSIVE URGENCY, R/O COVID,ELEVATED TROPONIN Physical Exam Vital Signs: Temp Pulse Resp BP Pulse Ox 97.8 F 79 22 H 144/71 H 88 L 08/31/20 04:38 08/31/20 04:38 08/31/20 04:38 08/31/20 04:38 08/31/20 04:38 Intake & Output 08/29/20 08/30/20 08/31/20 06:59 06:59 06:59 Intake Total 1580 1130 1433 Output Total 2950 3150 1500 Balance -1369 Weight 89 kg Results Laboratory Results: 08/28/20 06:33 08/30/20 04:25 08/25/20 23:54 Blood Blood Culture - Final NO GROWTH IN 5 DAYS 08/25/20 23:13 Blood Blood Culture - Final NO GROWTH IN 5 DAYS 08/25/20 08/25/20 08/25/20 02:15 10:03 16:54 Troponin I 0.040 0.042 0.040 NT-Pro-B Natriuret Pep 2270 H Impressions: Chest X-Ray 08/30/20 00:00 IMPRESSION: Borderline heart size without presley pulmonary edema. 08/28/20 06:33 08/30/20 04:25 MCV 76 fl (80-97) L 08/28/20 06:33 MCH 24.7 pg (27.0-33.4) L 08/28/20 06:33 MCHC 32.7 g/dL (32.0-36.0) 08/28/20 06:33 RDW 19.0 % (11.5-14.0) H 08/28/20 06:33 Seg Neutrophils % 68.4 % (42-78) 08/28/20 06:33 Chloride 106 mmol/L (98-107) 08/30/20 04:25 Carbon Dioxide 25 mmol/L (22-30) 08/30/20 04:25 Anion Gap 9 (5-19) 08/30/20 04:25 Est GFR ( Amer) > 60 (>60) 08/30/20 04:25 Glucose 111 mg/dL (75-110) H 08/30/20 04:25 Calcium 8.8 mg/dL (8.4-10.2) 08/30/20 04:25 Phosphorus 4.0 mg/dL (2.5-4.5) 08/30/20 04:25 Magnesium 2.6 mg/dL (1.6-2.3) H 08/30/20 04:25 Total Bilirubin 0.8 mg/dL (0.2-1.3) 08/25/20 02:15 AST 22 U/L (14-36) 08/25/20 02:15 Alkaline Phosphatase 108 U/L (38-126) 08/25/20 02:15 Total Protein 7.3 g/dL (6.3-8.2) 08/25/20 02:15 Albumin 4.0 g/dL (3.5-5.0) 08/25/20 02:15 08/25/20 23:54 Blood Blood Culture - Final NO GROWTH IN 5 DAYS 08/25/20 23:13 Blood Blood Culture - Final NO GROWTH IN 5 DAYS 08/25/20 08/25/20 08/25/20 02:15 10:03 16:54 Troponin I 0.040 0.042 0.040 NT-Pro-B Natriuret Pep 2270 H Current Medication List Generic Name Dose Route Start Last Admin Trade Name Freq PRN Reason Stop Dose Admin Acetaminophen 650 mg 08/25/20 14:19 Tylenol 325 Mg Tablet PO 09/24/20 14:18 Q4HP PRN FOR PAIN SCALE 1-2 Albuterol/Ipratropium 3 ml 08/25/20 14:19 08/27/20 08:47 Duoneb 3 Ml Ampul NEB 09/24/20 14:18 3 ml [id number] PRN Administration SHORTNESS OF BREATH Aspirin 81 mg 08/26/20 10:00 08/30/20 11:49 Aspirin 81 Mg Chewable Tablet PO 09/25/20 09:59 81 mg DAILY GUSTAVO Administration Carvedilol 6.25 mg 08/30/20 22:00 08/30/20 21:16 Coreg 6.25 Mg Tablet PO 09/29/20 21:59 6.25 mg Q12 GUSTAVO Administration Docusate Sodium 100 mg 08/26/20 10:00 08/30/20 11:49 Colace 100 Mg Capsule PO 09/25/20 09:59 100 mg DAILY GUSTAVO Administration Enoxaparin Sodium 40 mg 08/26/20 10:00 08/30/20 11:50 Lovenox Inj 40 Mg/0.4 Ml Disp.Syrin SUBCUT 09/25/20 09:59 40 mg DAILY GUSTAVO Administration Furosemide 40 mg 08/30/20 18:00 08/30/20 18:18 Lasix 40 Mg Tablet PO 09/29/20 17:59 40 mg BID GUSTAVO Administration Nitroglycerin 1 tab 08/25/20 14:29 Nitrostat 0.4 Mg (1/150 Gr) Tabs 25/Bottle SL 09/24/20 14:28 Q5MP PRN FOR CHEST PAIN Ondansetron HCl 4 mg 08/25/20 14:19 08/26/20 22:18 Zofran Inj/Pf 4 Mg/2 Ml Sdv IV 09/24/20 14:18 4 mg Q6HP PRN Administration FOR NAUSEA/VOMITING Oxycodone/Acetaminophen 1 tab 08/25/20 14:19 08/25/20 17:49 Percocet 5-325 Mg Tablet PO 09/01/20 14:18 1 tab Q6HP PRN Administration FOR PAIN SCALE 3-4 Pantoprazole Sodium 40 mg 08/26/20 06:00 08/31/20 06:[address] Tablet PO 09/25/20 05:59 40 mg Q6AM GUSTAVO Administration Sacubitril/Valsartan 1 tab 08/29/20 22:00 08/30/20 21:16 Entresto 49 Mg/51 Mg Tablet PO 09/28/20 21:59 1 tab Q12 GUSTAVO Administration Zolpidem Tartrate 5 mg 08/25/20 14:19 08/26/20 21:57 Ambien 5 Mg Tablet PO 09/01/20 14:18 5 mg HSP PRN Administration SLEEP OR INSOMNIA Discontinued Medications Generic Name Dose Route Start Last Admin Trade Name Freq PRN Reason Stop Dose Admin Aspirin 324 mg 08/25/20 10:53 08/25/20 11:06 Aspirin 81 Mg Chewable Tablet PO 08/25/20 10:54 324 mg NOW ONE Administration Azithromycin 500 mg 08/28/20 10:00 08/28/20 09:39 Zithromax 250 Mg Tablet PO 08/31/20 10:01 500 mg DAILY GUSTAVO Administration Carvedilol 3.125 mg 08/28/20 22:00 08/30/20 19:43 Coreg 3.125 Mg Tablet PO 09/27/20 21:59 Not Given Q12 GUSTAVO Furosemide 40 mg 08/25/20 07:24 08/25/20 07:35 Lasix Inj/Pf 40 Mg/4 Ml Sdv IV 08/25/20 07:25 40 mg NOW ONE Administration Furosemide 40 mg 08/25/20 22:00 08/27/20 09:39 Lasix Inj/Pf 40 Mg/4 Ml Sdv IV 09/24/20 21:59 40 mg Q12 GUSTAVO Administration Furosemide 40 mg 08/28/20 10:00 08/28/20 09:40 Lasix Inj/Pf 40 Mg/4 Ml Sdv IV 09/27/20 09:59 40 mg DAILY GUSTAVO Administration Furosemide 40 mg 08/29/20 10:00 Lasix 40 Mg Tablet PO 09/28/20 09:59 DAILY GUSTAVO Furosemide 40 mg 08/28/20 18:00 08/30/20 19:43 Lasix Inj/Pf 40 Mg/4 Ml Sdv IV 09/27/20 17:59 Not Given BID GUSTAVO Azithromycin 500 mg/ Dextrose 250 mls @ 250 mls/hr 08/25/20 16:00 08/27/20 09:39 IV 09/01/20 15:59 250 mls/hr DAILY GUSTAVO 250 mls/hr Administration Labetalol HCl 20 mg 08/25/20 06:42 08/25/20 07:36 Normodyne Inj 20 Mg/4 Ml Syringe IV 08/25/20 06:43 20 mg NOW ONE Administration Lisinopril 10 mg 08/28/20 10:00 Prinivil 10 Mg Tablet PO 09/27/20 09:59 DAILY GUSTAVO Lisinopril 20 mg 08/28/20 10:00 08/28/20 09:39 Prinivil 10 Mg Tablet PO 09/27/20 09:59 20 mg DAILY GUSTAVO Administration Metoprolol Succinate 25 mg 08/25/20 22:00 08/28/20 09:40 Toprol Xl 25 Mg Tab.Sr PO 09/24/20 21:59 25 mg Q12 GUSTAVO Administration Morphine Sulfate 2 mg 08/25/20 07:25 08/25/20 07:25 Morphine 10 Mg/Ml Inj IV 08/25/20 07:26 Not Given NOW ONE Nitroglycerin 0.5 gm 08/25/20 07:25 08/25/20 07:47 Nitrol 2% Ointment 1gm Packet TP 08/25/20 07:26 0.5 gm NOW ONE Administration Ondansetron HCl 4 mg 08/25/20 07:26 08/25/20 07:47 Zofran Inj/Pf 4 Mg/2 Ml Sdv IV 08/25/20 07:27 4 mg NOW ONE Administration Assessment & Plan - Diagnosis (1) 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 She continues to feel much better after achieving a fluid balance of -3 L. Her BNP is significantly decreased, her chest x-ray does not show fluid overload and her electrolytes are stable. At this point she has reached full benefit of inpatient care therefore she can be discharged from the cardiovascular standpoint once she gets her life vest. Her blood pressure continues to be above goal however it is acceptable for now therefore her antihypertensives will be uptitrated as an outpatient. Recommendations: -Continue with current medical management for now. -Primary care provider/outpatient multiple sclerosis nurse to uptitrate antihypertensives. -The patient may be discharged from the cardiovascular standpoint once she gets her LifeVest. -I will arrange outpatient follow-up with [facility] physicians within 1 week of discharge. -Restrict fluid intake to 1500 cc daily. -Low sodium diet, less than 1500 mg daily. -Strict intake and output. -Daily weights and call the office at [phone] if weight gain of 5 pounds in 1 week or 3 pounds overnight.. -Ischemic evaluation with left heart catheterization as outpatient. (2) Left bundle branch block Is this a current diagnosis for this admission?: Yes Plan: It is unknown at this point whether or not this is a new finding however the patient will require ischemic work-up once she is euvolemic. Recommendations: -Continue with cardiac telemetry. (3) Hypertensive emergency Is this a current diagnosis for this admission?: Yes Plan: Her blood pressure is improved although still mildly above goal. Recommendations: -Increase carvedilol to 6.25 mg twice daily. (4) Tobacco use Is this a current diagnosis for this admission?: Yes Plan: The patient states that she has significantly decreased her smoking to less than 0.5 pack/day. Recommendations: -Smoking cessation.
--- NOTE | 2020-09-01 00:50 | EKG REPORT ---
SEVERITY:- ABNORMAL ECG - SINUS RHYTHM LVH W/ REPOL ABNORMALITIES, POSSIBLE ISCHEMIA : Confirmed by: Vanda Rivero MD 01-Sep-2020 00:49:21
[2020-09-01] MEDS: PANTOPRAZOLE SODIUM 40 MG TABLET.DR PO SCH (06:17)
--- NOTE | 2020-09-01 07:56 | PDOC PROGRESS REPORT ---
Subjective Progress Note for:: 09/01/20 Subjective:: MICHELE GONZALEZ is a 55 year old female with history of hypertension, smoker of 1.5 pack/days for more than 30 years and with family history of coronary artery disease in her father who is consulted to our service for evaluation of heart failure. The patient was admitted to our facility approximately 3 days ago when she presented to the emergency room complaining of shortness of breath, progressive lower extremity edema up to her knees, orthopnea and PND. In the e mergency room she was found to have an elevated blood pressure and the patient admitted to be noncompliant with her antihypertensives. She was admitted and placed on appropriate medical therapy however she continues to complain of dyspnea even when seated at a 45 degree angle in bed. 09/01/2020: The patient had an uneventful night and and continues to feel better. She has no new complaints this morning. Her blood pressure, although improved, is still above goal. She is tolerating Entresto 49/51 mg twice daily without side effects. Continues to have a negative fluid balance. Her telemetry shows normal sinus rhythm with intermittent left bundle branch block. her BNP is significantly decreased and her electrolytes are stable. Her chest x-ray did not show pulmonary edema. She is scheduled to obtain her LifeVest today. Physical exam on 09/01/2020: GENERAL: Pleasant and conversational. Oriented x3 with normal mood. Not in acute distress. Well groomed and well developed. HEENT: Normocephalic, atraumatic. Pupils equal. Sclerae anicteric. Oropharynx moist. NECK: No JVD. No carotid bruits. LUNGS: Clear to auscultation bilaterally. Normal respiratory effort without th e use of accessory muscles or intercostal retractions. CARDIOVASCULAR: Regular rate and rhythm, normal S1 and S2 without murmurs, rubs, or gallops. PMI not displaced. ABDOMEN: No masses or tenderness to palpation. No bruit. No splenomegaly or hepatomegaly. No abdominal aorta bruit noted. EXTREMITIES: Trace pitting edema bilaterally, no cyanosis, no clubbing. +2 pulses femoral and pedal pulses bilaterally. SKIN: No lesions or rashes. MUSCULOSKELETAL: No chest tenderness to palpation. NEUROLOGIC: Nonfocal. No gross sensory or motor deficits bilateral upper or lower extremities. Cardiac studies: Echocardiogram on 08/27/2020: -EF 35%. -Grade 3 diastolic dysfunction. -Cannot comment on wall motion abnormalities. -Mild concentric LVH. -Mild MR. Reason For Visit: HYPERTENSIVE URGENCY, R/O COVID,ELEVATED TROPONIN Physical Exam Vital Signs: Temp Pulse Resp BP Pulse Ox 97.9 F 77 16 134/82 H 94 09/01/20 04:29 09/01/20 04:29 09/01/20 04:29 09/01/20 04:29 09/01/20 04:29 Intake & Output 08/30/20 08/31/20 09/01/20 06:59 06:59 06:59 Intake Total 1130 1433 1600 Output Total 3150 1500 1500 Balance -2019 100 Results Laboratory Results: 08/28/20 06:33 08/31/20 06:19 08/31/20 06:19 Sodium 140.2 Potassium 4.1 Chloride 107 Carbon Dioxide 25 Anion Gap 8 BUN 15 Creatinine 0.93 Est GFR ( Amer) > 60 Glucose 113 H Calcium 8.9 08/25/20 08/25/20 08/25/20 02:15 10:03 16:54 Troponin I 0.040 0.042 0.040 NT-Pro-B Natriuret Pep 2270 H 08/31/20 06:19 Troponin I NT-Pro-B Natriuret Pep 633 H Impressions: Chest X-Ray 08/31/20 00:00 IMPRESSION: NO ACUTE RADIOGRAPHIC FINDING IN THE CHEST. 08/28/20 06:33 08/31/20 06:19 MCV 76 fl (80-97) L 08/28/20 06:33 MCH 24.7 pg (27.0-33.4) L 08/28/20 06:33 MCHC 32.7 g/dL (32.0-36.0) 08/28/20 06:33 RDW 19.0 % (11.5-14.0) H 08/28/20 06:33 Seg Neutrophils % 68.4 % (42-78) 08/28/20 06:33 Chloride 107 mmol/L (98-107) 08/31/20 06:19 Carbon Dioxide 25 mmol/L (22-30) 08/31/20 06:19 Anion Gap 8 (5-19) 08/31/20 06:19 Est GFR ( Amer) > 60 (>60) 08/31/20 06:19 Glucose 113 mg/dL (75-110) H 08/31/20 06:19 Calcium 8.9 mg/dL (8.4-10.2) 08/31/20 06:19 Phosphorus 4.0 mg/dL (2.5-4.5) 08/30/20 04:25 Magnesium 2.6 mg/dL (1.6-2.3) H 08/30/20 04:25 Total Bilirubin 0.8 mg/dL (0.2-1.3) 08/25/20 02:15 AST 22 U/L (14-36) 08/25/20 02:15 Alkaline Phosphatase 108 U/L (38-126) 08/25/20 02:15 Total Protein 7.3 g/dL (6.3-8.2) 08/25/20 02:15 Albumin 4.0 g/dL (3.5-5.0) 08/25/20 02:15 08/25/20 08/25/20 08/25/20 02:15 10:03 16:54 Troponin I 0.040 0.042 0.040 NT-Pro-B Natriuret Pep 2270 H 08/31/20 06:19 Troponin I NT-Pro-B Natriuret Pep 633 H Current Medication List Generic Name Dose Route Start Last Admin Trade Name Freq PRN Reason Stop Dose Admin Acetaminophen 650 mg 08/25/20 14:19 Tylenol 325 Mg Tablet PO 09/24/20 14:18 Q4HP PRN FOR PAIN SCALE 1-2 Albuterol/Ipratropium 3 ml 08/25/20 14:19 08/27/20 08:47 Duoneb 3 Ml Ampul NEB 09/24/20 14:18 3 ml RTQ6HP PRN Administration SHORTNESS OF BREATH Aspirin 81 mg 08/26/20 10:00 08/31/20 10:58 Aspirin 81 Mg Chewable Tablet PO 09/25/20 09:59 81 mg DAILY GUSTAVO Administration Carvedilol 6.25 mg 08/30/20 22:00 08/31/20 22:19 Coreg 6.25 Mg Tablet PO 09/29/20 21:59 6.25 mg Q12 GUSTAVO Administration Docusate Sodium 100 mg 08/26/20 10:00 08/31/20 10:58 Colace 100 Mg Capsule PO 09/25/20 09:59 100 mg DAILY GUSTAVO Administration Enoxaparin Sodium 40 mg 08/26/20 10:00 08/31/20 10:58 Lovenox Inj 40 Mg/0.4 Ml Disp.Syrin SUBCUT 09/25/20 09:59 40 mg DAILY GUSTAVO Administration Furosemide 40 mg 08/30/20 18:00 08/31/20 18:33 Lasix 40 Mg Tablet PO 09/29/20 17:59 40 mg BID GUSTAVO Administration Nitroglycerin 1 tab 08/25/20 14:29 Nitrostat 0.4 Mg (1/150 Gr) Tabs 25/Bottle SL 09/24/20 14:28 Q5MP PRN FOR CHEST PAIN Ondansetron HCl 4 mg 08/25/20 14:19 08/26/20 22:18 Zofran Inj/Pf 4 Mg/2 Ml Sdv IV 09/24/20 14:18 4 mg Q6HP PRN Administration FOR NAUSEA/VOMITING Oxycodone/Acetaminophen 1 tab 08/25/20 14:19 08/25/20 17:49 Percocet 5-325 Mg Tablet PO 09/01/20 14:18 1 tab Q6HP PRN Administration FOR PAIN SCALE 3-4 Pantoprazole Sodium 40 mg 08/26/20 06:00 08/31/20 06:[address] Tablet PO 09/25/20 05:59 40 mg Q6AM GUSTAVO Administration Sacubitril/Valsartan 1 tab 08/29/20 22:00 08/31/20 22:19 Entresto 49 Mg/51 Mg Tablet PO 09/28/20 21:59 1 tab Q12 GUSTAVO Administration Zolpidem Tartrate 5 mg 08/25/20 14:19 08/26/20 21:57 Ambien 5 Mg Tablet PO 09/01/20 14:18 5 mg HSP PRN Administration SLEEP OR INSOMNIA Discontinued Medications Generic Name Dose Route Start Last Admin Trade Name Freq PRN Reason Stop Dose Admin Aspirin 324 mg 08/25/20 10:53 08/25/20 11:06 Aspirin 81 Mg Chewable Tablet PO 08/25/20 10:54 324 mg NOW ONE Administration Azithromycin 500 mg 08/28/20 10:00 08/28/20 09:39 Zithromax 250 Mg Tablet PO 08/31/20 10:01 500 mg DAILY GUSTAVO Administration Carvedilol 3.125 mg 08/28/20 22:00 08/30/20 19:43 Coreg 3.125 Mg Tablet PO 09/27/20 21:59 Not Given Q12 GUSTAVO Furosemide 40 mg 08/25/20 07:24 08/25/20 07:35 Lasix Inj/Pf 40 Mg/4 Ml Sdv IV 08/25/20 07:25 40 mg NOW ONE Administration Furosemide 40 mg 08/25/20 22:00 08/27/20 09:39 Lasix Inj/Pf 40 Mg/4 Ml Sdv IV 09/24/20 21:59 40 mg Q12 GUSTAVO Administration Furosemide 40 mg 08/28/20 10:00 08/28/20 09:40 Lasix Inj/Pf 40 Mg/4 Ml Sdv IV 09/27/20 09:59 40 mg DAILY GUSTAVO Administration Furosemide 40 mg 08/29/20 10:00 Lasix 40 Mg Tablet PO 09/28/20 09:59 DAILY GUSTAVO Furosemide 40 mg 08/28/20 18:00 08/30/20 19:43 Lasix Inj/Pf 40 Mg/4 Ml Sdv IV 09/27/20 17:59 Not Given BID GUSTAVO Azithromycin 500 mg/ Dextrose 250 mls @ 250 mls/hr 08/25/20 16:00 08/27/20 09:39 IV 09/01/20 15:59 250 mls/hr DAILY GUSTAVO 250 mls/hr Administration Labetalol HCl 20 mg 08/25/20 06:42 08/25/20 07:36 Normodyne Inj 20 Mg/4 Ml Syringe IV 08/25/20 06:43 20 mg NOW ONE Administration Lisinopril 10 mg 08/28/20 10:00 Prinivil 10 Mg Tablet PO 09/27/20 09:59 DAILY GUSTAVO Lisinopril 20 mg 08/28/20 10:00 08/28/20 09:39 Prinivil 10 Mg Tablet PO 09/27/20 09:59 20 mg DAILY GUSTAVO Administration Metoprolol Succinate 25 mg 08/25/20 22:00 08/28/20 09:40 Toprol Xl 25 Mg Tab.Sr PO 09/24/20 21:59 25 mg Q12 GUSTAVO Administration Morphine Sulfate 2 mg 08/25/20 07:25 08/25/20 07:25 Morphine 10 Mg/Ml Inj IV 08/25/20 07:26 Not Given NOW ONE Nitroglycerin 0.5 gm 08/25/20 07:25 08/25/20 07:47 Nitrol 2% Ointment 1gm Packet TP 08/25/20 07:26 0.5 gm NOW ONE Administration Ondansetron HCl 4 mg 08/25/20 07:26 08/25/20 07:47 Zofran Inj/Pf 4 Mg/2 Ml Sdv IV 08/25/20 07:27 4 mg NOW ONE Administration Assessment & Plan - Diagnosis (1) 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 Given her diastolic dysfunction I believe she has a mixed cardiomyopathy with both is chemic and nonischemic components. She is asymptomatic and with a negative fluid balance associated with a significantly improved BNP and euvolemic. She is scheduled to get her LifeVest today. We discussed further evaluation with left heart catheterization. The risks of the procedure to include but not limited to , abnormal rhythms of the heart, need for emergency cardiovascular surgery, damage to blood vessels, pain, respiratory complications from sedation as well as renal dysfunction were discussed with the patient. All her questions were answered and she verbalized her wish to proceed. Recommendations: -Continue with current medical management. -Left heart catheterization on 09/11/2020 at [facility]. -1 week follow-up with Dr. Rodriguez with [facility] physicians in our [place] office. The office number is [phone] -The patient may be discharged from the cardiovascular standpoint once she gets her LifeVest. -Restrict fluid intake to 1500 cc daily. -Low sodium diet, less than 1500 mg daily. -Daily weights and call the office at [phone] if weight gain of 5 pounds in 1 week or 3 pounds overnight. -Ischemic evaluation with left heart catheterization on 09/11/2020 at [facility]. (2) Left bundle branch block Is this a current diagnosis for this admission?: Yes Plan: It is unknown at this point whether or not this is a new finding however the patient will require ischemic work-up once she is euvolemic. Recommendations: -Continue with cardiac telemetry. (3) Hypertensive emergency Is this a current diagnosis for this admission?: Yes Plan: Her blood pressure is improved very close to her goal at this point. Recommendations: -Continue with current medical management. -Follow-up with cardiology as scheduled. (4) Tobacco use Is this a current diagnosis for this admission?: Yes Plan: The patient states that she has significantly decreased her smoking to less than 0.5 pack/day. Recommendations: -Smoking cessation.
[2020-09-01] MEDS: CARVEDILOL 6.25 MG TABLET PO SCH (10:56)
[2020-09-01] MEDS: ASPIRIN 81 MG TABLET, CHEWABLE PO SCH (10:56)
[2020-09-01] MEDS: SACUBITRIL/VALSARTAN 49 MG/51 MG TABLET PO SCH (10:56)
[2020-09-01] MEDS: FUROSEMIDE 40 MG TABLET PO SCH (10:57)
[2020-09-01] MEDS: ENOXAPARIN SODIUM INJ 40 MG/0.4 ML DISP.SYRIN SUBCUT SCH (10:57)
[2020-09-01] MEDS: DOCUSATE SODIUM 100 MG CAPSULE PO SCH (10:57)
[2020-09-01 13:28] VITALS: BP 141/53
--- NOTE | 2020-09-01 13:37 | PDOC DISCHARGE SUMMARY ---
Impression - Admit/DC Date/PCP Admission Date/Primary Care Provider: 08/25/20 12:51 Discharge Date: 09/01/20 - Additional Information Resuscitation Status: Full Code Discharge Diet: Cardiac Discharge Activity: Activity As Tolerated, Balance Activity w/Rest, Weigh Daily Referrals: SEYMOUR LIMON MD [ACTIVE STAFF] - 09/19/20 10:15 am (*Bring insurance card and ID card to appointment* *Arrive 20 minutes early to fill out new patient paperwork*) Prescriptions: Aspirin [Aspirin 81 mg Chewable Tablet] 81 mg PO DAILY 30 Days #30 tab.chew Carvedilol [Coreg 6.25 mg Tablet] 6.25 mg PO Q12 30 Days #60 tablet Sacubitril/Valsartan [Entresto 49 mg/51 mg Tablet] 1 tab PO Q12 30 Days #60 tablet Furosemide [Lasix 40 mg Tablet] 40 mg PO BID 30 Days #60 tablet Home Medications: Aspirin [Aspirin 81 mg Chewable Tablet] 81 mg PO DAILY 30 Days #30 tab.chew 08/31/20 Carvedilol [Coreg 6.25 mg Tablet] 6.25 mg PO Q12 30 Days #60 tablet 08/31/20 Furosemide [Lasix 40 mg Tablet] 40 mg PO BID 30 Days #60 tablet 08/31/20 Sacubitril/Valsartan [Entresto 49 mg/51 mg Tablet] 1 tab PO Q12 30 Days #60 tablet 08/31/20 History of Present Illiness History of Present Illness: MICHELE GONZALEZ is a 55 year old female 55 year old female Patient presented to the emergency room with complaints of difficulty breathing and shortness of breath. She was found to have a blood pressure 177/109 on initial presentation. Patient admits to medical noncompliance. She says she has been able to get her medications. She was not hypoxic although she was slightly intermittently tachypneic. Chest x-ray did show bilateral infiltrates and BNP slightly elevated at 2270. Patient's troponin was also found to be slightly elevated at 0.040 and 0.042. White count is 12.1 Chest x-ray is consistent with bilateral pneumonitis however patient is not hypoxic and she did improve with Lasix. I suspect her chest x-ray findings likely due to pulmonary congestion Hospital Course Hospital Course: 55-year-old female admitted with complaints of shortness of breath. Also came in with hypertensive emergency. Patient is not hypoxic at the time of admission. Chest x-ray shows bilateral infiltrates and BNP is elevated. Troponins are slightly elevated. Patient responded well to Lasix. Cardiology consult was done during the hospital stay. Found to be in acute heart failure with reduced ejection fraction and diastolic dysfunction. Patient is scheduled for left heart catheterization on 09/11/2020 here at [facility]. EKG also shows left bundle branch block. 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 Going home with LifeVest. Patient has an appointment with Dr. varghese at [facility] next week for further management. Patient received a LifeVest today and going home. Physical Exam Vital Signs: Temp Pulse Resp BP Pulse Ox 98.5 F 81 18 141/53 H 98 09/01/20 13:24 09/01/20 13:24 09/01/20 13:24 09/01/20 13:24 09/01/20 13:24 Intake & Output 08/31/20 09/01/20 09/02/20 06:59 06:59 06:59 Intake Total 1433 1700 Output Total 1500 2000 Balance -67 -300 Weight 92.533 kg General appearance: PRESENT: no acute distress, morbidly obese Head exam: PRESENT: atraumatic Eye exam: PRESENT: PERRLA Mouth exam: PRESENT: moist, tongue midline Neck exam: ABSENT: carotid bruit, JVD, lymphadenopathy, thyromegaly Respiratory exam: PRESENT: decreased breath sounds Cardiovascular exam: PRESENT: bradycardia GI/Abdominal exam: PRESENT: normal bowel sounds, soft. ABSENT: distended, guarding, mass, organolmegaly, rebound, tenderness Rectal exam: PRESENT: deferred Extremities exam: PRESENT: full ROM. ABSENT: calf tenderness, clubbing, pedal edema Neurological exam: PRESENT: alert, awake, oriented to person, oriented to place, oriented to time, oriented to situation, CN II-XII grossly intact. ABSENT: motor sensory deficit Psychiatric exam: PRESENT: appropriate affect, normal mood. ABSENT: homicidal ideation, suicidal ideation Results Laboratory Results: WBC 10.0 10^3/uL (4.0-10.5) 08/28/20 06:33 RBC 4.64 10^6/uL (3.72-5.28) 08/28/20 06:33 Hgb 11.5 g/dL (12.0-15.5) L 08/28/20 06:33 Hct 35.2 % (36.0-47.0) L 08/28/20 06:33 MCV 76 fl (80-97) L 08/28/20 06:33 MCH 24.7 pg (27.0-33.4) L 08/28/20 06:33 MCHC 32.7 g/dL (32.0-36.0) 08/28/20 06:33 RDW 19.0 % (11.5-14.0) H 08/28/20 06:33 Plt Count 377 10^3/uL (150-450) 08/28/20 06:33 Lymph % (Auto) 20.3 % (13-45) 08/28/20 06:33 Sauk % (Auto) 7.8 % (3-13) 08/28/20 06:33 Eos % (Auto) 2.4 % (0-6) 08/28/20 06:33 Baso % (Auto) 1.1 % (0-2) 08/28/20 06:33 Absolute Neuts (auto) 6.8 10^3/uL (1.7-8.2) 08/28/20 06:33 Absolute Lymphs (auto) 2.0 10^3/uL (0.5-4.7) 08/28/20 06:33 Absolute Monos (auto) 0.8 10^3/uL (0.1-1.4) 08/28/20 06:33 Absolute Eos (auto) 0.2 10^3/uL (0.0-0.6) 08/28/20 06:33 Absolute Basos (auto) 0.1 10^3/uL (0.0-0.2) 08/28/20 06:33 Seg Neutrophils % 68.4 % (42-78) 08/28/20 06:33 Sodium 140.2 mmol/L (137-145) 08/31/20 06:19 Potassium 4.1 mmol/L (3.6-5.0) 08/31/20 06:19 Chloride 107 mmol/L (98-107) 08/31/20 06:19 Carbon Dioxide 25 mmol/L (22-30) 10/09/20 06:19 Anion Gap 8 (5-19) 08/31/20 06:19 BUN 15 mg/dL (7-20) 08/31/20 06:19 Creatinine 0.93 mg/dL (0.52-1.25) 08/31/20 06:19 Est GFR ( Amer) > 60 (>60) 08/31/20 06:19 Est GFR (MDRD) Non-Af > 60 (>60) 08/31/20 06:19 Glucose 113 mg/dL (75-110) H 08/31/20 06:19 Calcium 8.9 mg/dL (8.4-10.2) 08/31/20 06:19 Phosphorus 4.0 mg/dL (2.5-4.5) 08/30/20 04:25 Magnesium 2.6 mg/dL (1.6-2.3) H 08/30/20 04:25 Total Bilirubin 0.8 mg/dL (0.2-1.3) 08/25/20 02:15 Direct Bilirubin 0.3 mg/dL (0.0-0.4) 08/25/20 02:15 Neonat Total Bilirubin 0.5 mg/dL (0.1-1.1) 08/25/20 02:15 Neonat Direct Bilirubin 0.0 mg/dL (0.0-0.3) 08/25/20 02:15 Neonat Indirect Bili 0.5 mg/dL (0.0-1.1) 08/25/20 02:15 AST 22 U/L (14-36) 08/25/20 02:15 ALT 30 U/L (<35) 08/25/20 02:15 Alkaline Phosphatase 108 U/L (38-126) 08/25/20 02:15 Troponin I 0.040 ng/mL 08/25/20 16:54 NT-Pro-B Natriuret Pep 633 pg/mL (<125) H 08/31/20 06:19 Total Protein 7.3 g/dL (6.3-8.2) 08/25/20 02:15 Albumin 4.0 g/dL (3.5-5.0) 08/25/20 02:15 COVID-19 Source See comment 08/25/20 13:40 COVID-19 (LEWIS) Not Detected (Not Detect) 08/25/20 13:40 08/25/20 08/25/20 08/25/20 02:15 10:03 16:54 Troponin I 0.040 0.042 0.040 NT-Pro-B Natriuret Pep 2270 H 08/31/20 06:19 Troponin I NT-Pro-B Natriuret Pep 633 H Impressions: Chest X-Ray 08/25/20 02:10 IMPRESSION: Bilateral pneumonitis copyright 2011 [employer]- All Rights Reserved Chest X-Ray 08/30/20 00:00 IMPRESSION: Borderline heart size without presley pulmonary edema. Chest X-Ray 08/31/20 00:00 IMPRESSION: NO ACUTE RADIOGRAPHIC FINDING IN THE CHEST. Plan Plan of Treatment: Patient is scheduled for left-sided cardiac cath on of this month. Patient is going to follow-up with Dr. varghese next week. Time Spent: Greater than 30 Minutes Stroke Is this a Stroke Patient?: No Acute Heart Failure Is this a Heart Failure Patient?: No
== END 2020-09-01 13:30 | disposition home or self-care (01) | DRG 292 ==
LOC: ER 01:49 → EH 12:51 → 3N 16:07 → 3S 08-27 12:37
PROVIDERS: ADMIT Internal Medicine; ATTEND Internal Medicine
DX: I11.0 Hypertensive heart disease with heart failure (principal); I16.1 Hypertensive emergency; I50.43 Acute on chronic combined systolic (congestive) and diastolic (congestive) heart failure; I44.7 Left bundle-branch block, unspecified; F41.8 Other specified anxiety disorders; F17.210 Nicotine dependence, cigarettes, uncomplicated; Z20.828 Contact with and (suspected) exposure to other viral communicable diseases; Z91.14 Patient's other noncompliance with medication regimen
CPT/HCPCS: 36415; 71045; 71046; 80048; 80053; 83735; 83880; 84100; 84484; 85025; 87040; 87635; 93005; 93010; 93306; 96374; 96375; 99285; C9803; J0456; J1650; J1940; J2405; J3490; J7060

== ENCOUNTER 2020-09-11 06:53 | Day surgery (SDC) | payer MEDICAID ==
[~2020-09-11 06:53] MED LIST: ASPIRIN 325 MG TABLET PO PRN; DIAZEPAM 5 MG TABLET PO PRN; DIPHENHYDRAMINE HCL 25 MG CAPSULE PO PRN; RADIAL COCKTAIL SYRINGE 10 ML IV PRN
[2020-09-11] MEDS ORDERED: LIDOCAINE 1% INJ-PF (10 MG/ML) 30 ML SDV ONE ×2 (07:52→08:09)
[2020-09-11] MEDS ORDERED: HEPARIN SODIUM,PORCINE/NS/PF 2,000 UNIT/1,000 ML RTUINJ IV ONE (07:52)
[2020-09-11] MEDS ORDERED: FENTANYL CITRATE INJ/PF 100 MCG/2 ML AMPUL ONE ×2 (08:08→08:50)
[2020-09-11] MEDS ORDERED: MIDAZOLAM 2 MG/2 ML INJ ONE ×2 (08:08→08:41)
[2020-09-11] MEDS ORDERED: HEPARIN SOD (PORCINE) 1,000 UNIT/ML 10 ML VIAL ONE (08:08)
[2020-09-11] MEDS ORDERED: DIPHENHYDRAMINE HCL 25 MG CAPSULE ONE (08:25)
[2020-09-11] MEDS ORDERED: ASPIRIN 325 MG TABLET ONE (08:25)
[2020-09-11] MEDS ORDERED: DIAZEPAM 5 MG TABLET ONE (08:25)
[2020-09-11] MEDS ORDERED: NITROGLYCERIN/D5W 50 MG/250 ML RTUINJ IV ONE (08:51)
--- NOTE | 2020-09-11 09:51 | Operative Report ---
Operative Report DATE OF SURGERY: 09/11/20 PREOPERATIVE DIAGNOSIS: Congestive heart failure, cardiomyopathy POSTOPERATIVE DIAGNOSIS: Cardiomyopathy OPERATION: After informed consent was obtained the patient was brought to the cardiac catheterization lab and the right wrist was prepared in usual sterile and draped manner. Hemodynamic access was gained using micropuncture technique and the patient was anticoagulated with heparin. An intra-arterial cocktail of verapamil and lidocaine was administered. Selective coronary angiography was performed with a [place] catheter. This was exchanged with pigtail catheter and left ventriculography was performed in standard CEDEÑO projection. The patient left the Cardiac Catheterization Lab in stable condition, with intact distal pulses and no chest pain or other complications from the procedure. Conscious sedation was initiated, monitored, and maintained during the procedure with the start time of 845` and a completion time of 925 for a total procedure time of 40 minutes. A total of [2.5] milligrams of Versed and 175 micrograms and fentanyl were used for conscious sedation. HEMODYNAMIC DATA: [Aortic pressure at the beginning of the case is 152/70 post ventriculography LV pressure is 147/20 4 aortic pressure on pullback is 154/76 there is no gradient across the aortic valve]. The guidewire would not advance across the subclavian artery because of tortuosity and subclavian angiography demonstrates an acute bend of the innominate at the carotid this was eventually negotiated with a JR4 and a Bentson guidewire the remainder of the procedure was performed using exchange wire technique. CORONARY ANATOMY: []. ANGIOGRAPHY: []. VENTRICULOGRAPHY: Ventriculography is performed in the CEDEÑO projection and demonstrates [normal regional wall motion ejection fraction appears to be mildly reduced in the 45 to 50% range visually estimated] . CORONARY ANGIOGRAPHY: []. LEFT MAIN: [Normal]. LEFT ANTERIOR DESCENDING: [The LAD is transapical gives rise to several diagonal vessels once again luminal irregularities with nonobstructive disease are present]. CIRCUMFLEX CORONARY: [] The circumflex is a prep proximal 20% to 30% stenosis luminal irregularities are present in all distributions there are no critical or focal obstructive lesions seen. RIGHT CORONARY ARTERY: [The right coronary artery is dominant supplying the PDA and posterolateral branches there are minor luminal abnormalities otherwise no nobstructive disease is present]. IMPRESSION: [Normal epicardial coronaries. Mildly reduced left ventricular systolic function. Elevated end-diastolic pressure. No evidence of valvular heart disease] SURGEON: MARIA GUADALUPE TURCIOS ANESTHESIA: Moderate Sedation COMPLICATIONS: None PROCEDURE: Left heart catheterization coronary angiography left ventriculography subclavian angiography
[2020-09-11 13:18] VITALS: BP 121/65
== END 2020-09-11 12:00 | disposition home or self-care (01) ==
LOC: CCL 06:53
PROVIDERS: ATTEND Internal Medicine Cardiovascular Disease
DX: I42.9 Cardiomyopathy, unspecified (principal); I50.20 Unspecified systolic (congestive) heart failure
CPT/HCPCS: 93458; C1769 ×2; J2250; J3490 ×7; J3010; J1644 ×2